=== PATIENT | female | born 1960 | race Caucasian/White ===

== ENCOUNTER 2018-11-13 08:36 | Emergency (ER) | payer OTHER ==
[2018-11-13] MEDS ORDERED: METHYLPREDNISOLONE 125 MG INJ ONE ×2 (09:07→09:08)
--- NOTE | 2018-11-13 10:03 | RAD REPORT ---
EXAM DESCRIPTION: CT - Stone Protocol - 11/13/2018 9:31 am CLINICAL HISTORY: Abdominal pain. COMPARISON: None. TECHNIQUE: Computed axial tomography of the abdomen pelvis was obtained without oral or IV contrast. Lack of IV and oral contrast limits evaluation of solid organs, bowel, and vessels. Coronal reformat sabrina images were obtained and reviewed. All CT scans are performed using dose optimization technique as appropriate and may include automated exposure control or mA/KV adjustment according to patient size. FINDINGS: 1 millimeter calculus left kidney. No hydronephrosis. No right renal calculus. An ureteral calculus is not noted. A bladder calculus is not present. The liver, spleen, pancreas and adrenals appear grossly normal There is no evidence of diverticulitis. The appendix appears normal Tiny umbilical hernia. Small bilateral inguinal hernias contain fat IMPRESSION: 1 millimeter nonobstructing left renal calculus
--- NOTE | 2018-11-13 10:16 | EDPHYS ---
Physician Documentation [facility] Name: Sangeeta Phelps Age: 58 yrs Sex: Female : 1960 Arrival Date: 11/13/2018 Time: 08:39 Bed 8 Private MD: ED Physician Andreas Reyes HPI: 11/13 09:04 This 58 yrs old Female presents to ER via Unassigned with complaints of Back rn Pain. 09:04 This 58 yrs old Female presents to ER via Unassigned with complaints of Back rn Pain. 09:04 The symptoms are located in the low back. Onset: The symptoms/episode began/occurred rn yesterday. The pain radiates to the abdomen. Associated signs and symptoms: The patient has no apparent associated signs or symptoms, Pertinent negatives: abdominal pain, chest pain, constipation, dysuria, fever, headache, hematuria, incontinence, nausea, numbness, tingling, urinary retention, vomiting, weakness. Modifying factors: The patient symptoms are alleviated by nothing, the patient symptoms are aggravated by any movement. Severity of symptoms: At their worst the symptoms were moderate, in the emergency department the symptoms are unchanged. The patient has not experienced similar symptoms in the past. The patient has not recently seen a physician. Historical: - Allergies: 09:00 No Known Allergies; sg - PMHx: 09:00 Anxiety; sg - PSHx: 09:19 Hysterectomy; iw - Immunization history:: Adult Immunizations not up to date. - Family history:: not pertinent. - Social history:: Smoking status: Patient/guardian denies using tobacco, Patient uses vape pen. - Ebola Screening: : Patient negative for fever greater than or equal to 101.5 degrees Fahrenheit, and additional compatible Ebola Virus Disease symptoms Patient denies exposure to infectious person Patient denies travel to an Ebola-affected area in the 21 days before illness onset No symptoms or risks identified at this time. - Hospitalizations: : No recent hospitalization is reported. ROS: 09:04 Constitutional: Negative for fever, chills, and weight loss, Eyes: Negative for injury, rn pain, redness, and discharge, Neck: Negative for injury, pain, and swelling, Cardiovascular: Negative for chest pain, palpitations, and edema, Respiratory: Negative for shortness of breath, cough, wheezing, and pleuritic chest pain, Abdomen/GI: Negative for abdominal pain, nausea, vomiting, diarrhea, and constipation, Back: Negative for injury MS/Extremity: Negative for injury and deformity, Skin: Negative for injury, rash, and discoloration, Neuro: Negative for headache, weakness, numbness, tingling, and seizure. Exam: 09:04 Constitutional: This is a well developed, well nourished patient who is awake, alert, rn appears uncomfortable Head/Face: Normocephalic, atraumatic. Eyes: Pupils equal round and reactive to light, extra-ocular motions intact. Lids and lashes normal. Conjunctiva and sclera are non-icteric and not injected. Cornea within normal limits. Periorbital areas with no swelling, redness, or edema. Neck: Trachea midline, no thyromegaly or masses palpated, and no cervical lymphadenopathy. Supple, full range of motion without nuchal rigidity, or vertebral point tenderness. No Meningismus. Cardiovascular: Regular rate and rhythm. No pulse deficits. Respiratory: No increased work of breathing, no retractions or nasal flaring. Abdomen/GI: soft, non-tender Back: No spinal tenderness. + painful ROM with perilumbar tenderness of muscles. MS/ Extremity: Pulses equal, no cyanosis. Neurovascular intact. Full, normal range of motion. Equal circumference. Neuro: Awake and alert, GCS 15, oriented to person, place, time, and situation. Cranial nerves II-XII grossly intact. Motor strength 5/5 in all extremities. Sensory grossly intact. Cerebellar exam normal. Normal gait. Neg straight leg raise, Patellar DTRs normal. Vital Signs: 09:08 BP 189 / 95; Pulse 71; Resp 16; Temp 98.2; Pulse Ox 97% on R/A; Weight 77.11 kg; Height iw 5 ft. 00 in. (152.40 cm); Pain 10/10; 09:59 BP 168 / 87; Pulse 74; Resp 16; Pulse Ox 96% ; Pain 3/10; ss 09:08 Body Mass Index 33.20 (77.11 kg, 152.40 cm) iw MDM: 08:57 Patient medically screened. rn 10:14 Differential diagnosis: arthritis, chronic back pain, Ureterolithiasis radiculopathy, rn muscle spasm. Data reviewed: vital signs, nurses notes, lab test result(s), urinalysis, radiologic studies, CT scan, and as a result, I will discharge patient. Counseling: I had a detailed discussion with the patient and/or guardian regarding: the historical points, exam findings, and any diagnostic results supporting the discharge/admit diagnosis, lab results, radiology results, the need for outpatient follow up, to return to the emergency department if symptoms worsen or persist or if there are any questions or concerns that arise at home. Response to treatment: the patient's symptoms have mildly improved after treatment, and as a result, I will discharge patient. Special discussion: I discussed with the patient/guardian in detail that at this point there is no indication for admission to the hospital. It is understood, however, that if the symptoms persist or worsen the patient needs to return immediately for re-evaluation. 11/13 09:24 Order name: Urine Dipstick--Ancillary (enter results) bd 11/13 09:03 Order name: CT Stone Protocol; Complete Time: 10:14 rn 11/13 09:03 Order name: Urine Dipstick-Ancillary (obtain specimen); Complete Time: 09:24 rn Administered Medications: 09:15 Drug: SOLU-Medrol 125 mg Route: IM; Site: right gluteus; ss 10:00 Follow up: Response: No adverse reaction; Marked relief of symptoms; Pain is decreased ss 09:24 Not Given (Patient admits she does not have a ride home upon discharge): [place] 10 ss mg-325 mg 1 tabs PO once; RASS on ADMIN: Combtv4, Very Agttd3, Agttd2, Rstlss1, AlertClm0, Drwsy-1, Lt Sdtn-2, Mod Sdtn-3, Dp Sdtn-4, UnArsble-5 10:24 Not Given (Duplicate Order): TORadol - Ketorolac 15 mg IVP once sg 10:29 Drug: TORadol - Ketorolac 15 mg Route: IM; Site: right deltoid; sg 10:37 Follow up: Response: No adverse reaction; Medication administered at discharge. ss Disposition: 11/13/18 10:15 Discharged to Home. Impression: Low back pain, Muscle spasm of back. - Condition is Stable. - Discharge Instructions: Back Pain, Adult, Kidney Stones, Muscle Cramps and Spasms, Back Exercises, Qrde-[id number]-Biag. - Prescriptions for Ultram 50 mg Oral Tablet - take 1 tablet by ORAL route every 6 hours As needed; 15 tablet. Cyclobenzaprine 10 mg Oral Tablet - take 1 tablet by ORAL route every 8 hours As needed; 20 tablet. Medrol (Joey) 4 mg Oral Tablets, Dose Pack - take 1 tablet by ORAL route as directed - follow package instructions; 1 packet. - Medication Reconciliation Form, Thank You Letter, Antibiotic Education, Prescription Opioid Use, Work release form form. - Follow up: Private Physician; When: As needed; Reason: Recheck today's complaints, Re-evaluation by your physician. - Problem is new. - Symptoms have improved. Signatures: Dispatcher [employer] EDMS Oliver Cordova RN RN sg Williams, Irene, RN RN iw Nieto, Roman, MD MD rn Smirch, Shelby, RN RN ss Corrections: (The following items were deleted from the chart) 09:19 09:00 PSHx: None; [facility] 10:37 10:15 11/13/2018 10:15 Discharged to Home. Impression: Low back pain; Muscle spasm of ss back. Condition is Stable. Forms are Medication Reconciliation Form, Thank You Letter, Antibiotic Education, Prescription Opioid Use. Follow up: Private Physician; When: As needed; Reason: Recheck today's complaints, Re-evaluation by your physician. Problem is new. Symptoms have improved. rn
--- NOTE | 2018-11-13 10:16 | ER ---
Nurse's Notes [facility] Name: Sangeeta Phelps Age: 58 yrs Sex: Female : 1960 Arrival Date: 11/13/2018 Time: 08:39 Bed 8 Private MD: Diagnosis: Low back pain;Muscle spasm of back Presentation: 11/13 09:07 Presenting complaint: Patient states: low back pain since morning, described as iw cramping pain, radiates to colin groin area, worse on left side, denies injury but was helping her move on Sunday. Transition of care: patient was not received from another setting of care. Onset of symptoms was November 12, 2018. Risk Assessment: Do you want to hurt yourself or someone else? Patient reports no desire to harm self or others. Initial Sepsis Screen: Does the patient meet any 2 criteria? No. Patient's initial sepsis screen is negative. Does the patient have a suspected source of infection? No. Patient's initial sepsis screen is negative. Care prior to arrival: None. 09:07 Method Of Arrival: Wheelchair iw 09:07 Acuity: MICHAEL 4 iw Historical: - Allergies: 09:00 No Known Allergies; sg - PMHx: 09:00 Anxiety; sg - PSHx: 09:19 Hysterectomy; iw - Immunization history:: Adult Immunizations not up to date. - Family history:: not pertinent. - Social history:: Smoking status: Patient/guardian denies using tobacco, Patient uses vape pen. - Ebola Screening: : Patient negative for fever greater than or equal to 101.5 degrees Fahrenheit, and additional compatible Ebola Virus Disease symptoms Patient denies exposure to infectious person Patient denies travel to an Ebola-affected area in the 21 days before illness onset No symptoms or risks identified at this time. - Hospitalizations: : No recent hospitalization is reported. Screenin:25 Abuse screen: Denies threats or abuse. Denies injuries from another. Nutritional ss screening: No deficits noted. Tuberculosis screening: Never had TB. Fall Risk None identified. Assessment: 09:15 General: Appears uncomfortable, Behavior is calm, cooperative. Pain: Complains of pain ss in lumbar area Pain radiates to bilateral groin area,"worse on left" Pain currently is 10 out of 10 on a pain scale. Pain began. Pain: Quality of pain is described as crampy. Pain: Pain began 1 day ago. Is continuous. Neuro: Level of Consciousness is awake, alert, obeys commands, Oriented to person, place, time, situation. Cardiovascular: Capillary refill < 3 seconds is brisk in bilateral fingers. Respiratory: Airway is patent Respiratory effort is even, unlabored, Respiratory pattern is regular, symmetrical. GI: Patient currently denies abdominal pain, diarrhea, nausea, vomiting. : No signs and/or symptoms were reported regarding the genitourinary system. EENT: Oral mucosa is moist. Derm: Skin is intact, is healthy with good turgor, Skin is dry, Skin is pink, warm \\T\\ dry. normal. Musculoskeletal: Circulation, motion, and sensation intact. Range of motion: intact in all extremities, Swelling absent. 09:25 Reassessment: assisted patient to restroom to provide urine specimen VIA wheelchair. ss NAD. Patient reports she does not have a ride home and does not want to leave her truck here therefore she will wait to take any narcotics. 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 09:33 Reassessment: PAtient back from CT. ss 09:59 Reassessment: Patient appears in no apparent distress at this time. Patient and/or ss family updated on plan of care and expected duration. Pain level reassessed. Patient states feeling better. Patient states symptoms have improved. 10:36 Reassessment: Patient appears in no apparent distress at this time. No changes from previously documented assessment. Vital Signs: 09:08 BP 189 / 95; Pulse 71; Resp 16; Temp 98.2; Pulse Ox 97% on R/A; Weight 77.11 kg; Height iw 5 ft. 00 in. (152.40 cm); Pain 10/10; 09:59 BP 168 / 87; Pulse 74; Resp 16; Pulse Ox 96% ; Pain 3/10; ss 09:08 Body Mass Index 33.20 (77.11 kg, 152.40 cm) iw ED Course: 08:39 Patient arrived in ED. rg4 08:57 Andreas Reyes MD is Attending Physician. rn 08:59 Arm band placed on. sg 09:08 Triage completed. iw 09:18 Diamond Reyes, RN is Primary Nurse. iw 09:20 Patient has correct armband on for positive identification. Bed in low position. Call ss light in reach. 09:31 CT Stone Protocol In Process Unspecified. EDMS 10:36 No provider procedures requiring assistance completed. Patient did not have IV access ss during this emergency room visit. Administered Medications: 09:15 Drug: SOLU-Medrol 125 mg Route: IM; Site: right gluteus; ss 10:00 Follow up: Response: No adverse reaction; Marked relief of symptoms; Pain is decreased ss 09:24 Not Given (Patient admits she does not have a ride home upon discharge): [place] 10 ss mg-325 mg 1 tabs PO once; RASS on ADMIN: Combtv4, Very Agttd3, Agttd2, Rstlss1, AlertClm0, Drwsy-1, Lt Sdtn-2, Mod Sdtn-3, Dp Sdtn-4, UnArsble-5 10:24 Not Given (Duplicate Order): TORadol - Ketorolac 15 mg IVP once sg 10:29 Drug: TORadol - Ketorolac 15 mg Route: IM; Site: right deltoid; sg 10:37 Follow up: Response: No adverse reaction; Medication administered at discharge. ss Outcome: 10:15 Discharge ordered by . rn 10:36 Discharged to home ambulatory. ss 10:36 Condition: improved 10:36 Discharge instructions given to patient, Instructed on discharge instructions, follow up and referral plans. medication usage, Demonstrated understanding of instructions, follow-up care, medications, Prescriptions given X 3. 10:37 Patient left the ED. ss Signatures: Dispatcher [employer] EDMS Oliver Cordova RN RN sg Williams, Irene, RN RN iw Andreas Reyes MD MD rn Smirch, Shelby, RN RN ss Garcia, Rubi rg4 Corrections: (The following items were deleted from the chart) 09:19 09:00 PSHx: None; sg dom
[2018-11-13] MEDS ORDERED: KETOROLAC 30 MG/ML INJ ONE (10:26)
[2018-11-13 10:33] LABS: Urine Blood TRACE (NEG); Urine Glucose NEGATIVE (NEG); Urine Protein NEGATIVE (NEG)
[2018-11-13 10:54] VITALS: BP 168/87; O2SAT 96
[2018-11-13 10:56] VITALS: TEMP 98.2
== END 2018-11-13 10:37 | disposition home or self-care (01) ==
LOC: ER 08:36
DX: M62.830 Muscle spasm of back (principal); F17.290 Nicotine dependence, other tobacco product, uncomplicated
CPT/HCPCS: 81003; 76377; 74176; 96372; 99283; J2930

== ENCOUNTER 2021-11-03 08:02 | Emergency (ER) | payer OTHER ==
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
[2021-11-03] MEDS ORDERED: DIAZEPAM 5 MG TABLET ONE (09:08)
[2021-11-03] MEDS ORDERED: KETOROLAC 30 MG/ML INJ ONE (09:09)
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
[2021-11-05 03:27] VITALS: TEMP 98.5; O2SAT 100
[2021-11-05 03:31] VITALS: BP 167/88
== END 2021-11-03 10:14 | disposition home or self-care (01) ==
LOC: ER 08:02
DX: S29.012A Strain of muscle and tendon of back wall of thorax, initial encounter (principal); M25.78 Osteophyte, vertebrae; V49.40XA Driver injured in collision with unspecified motor vehicles in traffic accident, initial encounter; I10 Essential (primary) hypertension; Z88.5 Allergy status to narcotic agent
CPT/HCPCS: 70450; 71250; 72125; 96372; 99284

== ENCOUNTER 2021-11-28 09:24 | Emergency (ER) | payer BC, OTHER ==
--- OUTSIDE RECORDS SUMMARY | 2021-11-28 09:27 | XMS REPORT | Continuity of Care Document ---
:1960 Author Organization [facility] t Address [address] [place] [address] Care Team Providers Name Role Phone ANN [...] 50 MG HCl - 50 MG 1-22 MOSQUE TABLET Physici Oral Tablet Oral Tablet 00:00: [...] Procedure Date / Time Performed Performing Clinician [facility] Chest w contrast [id number] 2019-09-05 00:00:[address] Chest wo contrast [id number] 2019-03-05 00:00:[address] Abdomen/Pelvis wo 2019-03-05 00:00:00 [facility] contrast [id number] Encounters Start End Encounter Admission Attending Care Care Encounter Source Date/Time Date/Time Type Type Clinicians Facility Department ID 2019-04-11 2019-04-11 Appointmen [facility] [id number] [place] 09:30:00 09:30:00 t; [facility] 2019-03-05 2019-03-05 Appointmen [facility] [id number] [place] 08:00:00 08:00:00 t; ANN MARIE HINTON, [facility] David Grande M.D. [facility] 2017-08-03 2017-08-[address] [facility] [id number] [facility] 04:31:00 06:40:00 [facility] Results Test Test Test Results Result Source Description Time Comments Comments CT 2019-02- Radiation Dose CTDIVOL = [facility] Chest/Abdomen/P 28 0 (mGy): DLP = 991.41 rachel wo 07:55:00 (mGy-cm)PROCEDURE contrast [id number] INFORMATION:Exam: CT Chest Without ContrastExam date and [...] corticaltrabeculation compatible with hemangiomata. This corresponds with [id number] lesions seen on MRI. There is a [...] is nonspecificArgenis Rhodes MD On 03/11/2019 16:05:56; [id number]--Odgb by: Argenis Rhodes MDDictated Date/time: 03/11/19 16:06Electronically Signed by: Argenis Rhodes MD 03/11/2015:06FINAL REPORT
[2021-11-28 10:15] LABS: Absolute Lymphocytes (CBC) 1.1 K/uL (0.7-4.9); Hematocrit 40.5 % (36.0-45.0); Lymphocytes % 14.6 % (15.3-44.8); MCV 97.5 fL (80-100); MPV 6.5 fL (7.6-11.3); RBC Red Blood Cell Count 4.16 M/uL (3.86-4.86)
[2021-11-28 10:34] LABS: Albumin 3.2 g/dL (3.4-5.0); Bilirubin Total 0.2 mg/dL (0.2-1.0); Potassium 4.6 mmol/L (3.5-5.1); Protein, Total 7.1 g/dL (6.4-8.2); Troponin High Sensitivity 6.3 pg/mL (<58.9)
--- NOTE | 2021-11-28 10:52 | RAD REPORT ---
EXAM DESCRIPTION: Hi Single View11/28/2021 10:43 am CLINICAL HISTORY: Chest pain COMPARISON: 2017 FINDINGS: The lungs appear clear of acute infiltrate. The heart is normal size IMPRESSION: No acute abnormalities displayed
--- NOTE | 2021-11-28 13:55 | ER ---
Nurse's Notes [facility] Name: Sangeeta Asif Age: 61 yrs Sex: Female : 1960 Arrival Date: 11/28/2021 Time: 09:35 Bed 4 Private MD: Diagnosis: Chest pain, unspecified Presentation: 11/28 09:43 Chief complaint: Patient states: pt woke up with midsternal chest pain radiating to the iw left, and back , pain felt sharp, 5/10, gave fentanyl 50 mcg and ASA 324 and pain is now 3/10. Coronavirus screen: At this time, the client does not indicate any symptoms associated with coronavirus-19. Ebola Screen: Patient negative for fever greater than or equal to 101.5 degrees Fahrenheit, and additional compatible Ebola Virus Disease symptoms Patient denies exposure to infectious person. Patient denies travel to an Ebola-affected area in the 21 days before illness onset. No symptoms or risks identified at this time. Initial Sepsis Screen: Does the patient meet any 2 criteria? No. Patient's initial sepsis screen is negative. Does the patient have a suspected source of infection? No. Patient's initial sepsis screen is negative. Risk Assessment: Do you want to hurt yourself or someone else? Patient reports no desire to harm self or others. Onset of symptoms was November 28, 2021. 09:43 Method Of Arrival: EMS: [facility] iw 09:43 Acuity: MICHAEL 3 iw Historical: - Allergies: 09:46 Codeine; iw - Home Meds: 09:53 metformin 500 mg Oral tr24 1 tab once daily [Active]; simvastatin 10 mg Oral tab 1 tab iw once daily [Active]; montelukast 10 mg oral tab 1 tab once daily [Active]; lisinopril 20 mg Oral tab 1 tab once daily [Active]; - PMHx: 09:46 Anxiety; Hypercholesterolemia; Hypertensive disorder; iw - Immunization history:: Adult Immunizations unknown. - Social history:: Smoking status: unknown. Screenin:12 Abuse screen: Denies threats or abuse. Nutritional screening: No deficits noted. jd3 Tuberculosis screening: No symptoms or risk factors identified. Fall Risk IV access (20 points). Ambulatory Aid- None/Bed Rest/Nurse Assist (0 pts). Gait- Normal/Bed Rest/Wheelchair (0 pts) Mental Status- Oriented to own ability (0 pts). Total Horowitz Fall Scale indicates No Risk (0-24 pts). Assessment: 10:10 General: Appears in no apparent distress. comfortable, Behavior is calm, cooperative, jd3 appropriate for age. Pain: Complains of pain in chest Pain currently is 2 out of 10 on a pain scale. at worst was 10 out of 10 on a pain scale. Quality of pain is described as pressure, squeezing. Neuro: Solis Agitation-Sedation Scale (RASS): 0 - Alert and Calm Level of Consciousness is awake, alert, obeys commands, Oriented to person, place, time, situation. Cardiovascular: Heart tones S1 S2 present Capillary refill < 3 seconds Patient's skin is warm and dry. Rhythm is regular. Respiratory: Airway is patent Respiratory effort is even, unlabored, Respiratory pattern is regular, symmetrical, Breath sounds are clear bilaterally. Denies cough, shortness of breath. GI: No signs and/or symptoms were reported involving the gastrointestinal system. : No signs and/or symptoms were reported regarding the genitourinary system. EENT: No signs and/or symptoms were reported regarding the EENT system. Derm: Skin is intact, Skin is dry, Skin is normal, Skin temperature is warm. Musculoskeletal: Circulation, motion, and sensation intact. Range of motion: intact in all extremities. 10:38 Reassessment: Patient appears in no apparent distress at this time. Patient and/or jd3 family updated on plan of care and expected duration. Pain level reassessed. Patient is alert, oriented x 3, equal unlabored respirations, skin warm/dry/pink. awaiting results. 11:52 Reassessment: Patient appears in no apparent distress at this time. Patient and/or jd3 family updated on plan of care and expected duration. Pain level reassessed. Patient is alert, oriented x 3, equal unlabored respirations, skin warm/dry/pink. 13:15 Reassessment: Patient appears in no apparent distress at this time. Patient and/or jd3 family updated on plan of care and expected duration. Pain level reassessed. Patient is alert, oriented x 3, equal unlabored respirations, skin warm/dry/pink. repeat trop sent to lab Patient states feeling better. Vital Signs: 09:46 BP 186 / 97; Pulse 72; Resp 16; Temp 98.1; Pulse Ox 98% on R/A; iw 10:38 BP 189 / 96; Pulse 73; Resp 16; Pulse Ox 99% on R/A; Pain 2/10; jd3 11:52 BP 173 / 88; Pulse 74; Resp 17 S; Pulse Ox 99% on R/A; jd3 13:15 BP 165 / 75; Pulse 92; Resp 18; Pulse Ox 99% on R/A; jd3 ED Course: 09:35 Patient arrived in ED. ll1 09:38 Carolyn Carias MD is Attending Physician. sd2 09:45 Triage completed. iw 09:45 Arm band placed on. iw 09:57 Kelvin Mayberry RN is Primary Nurse. jd3 10:09 Maintain EMS IV. Dressing intact. Good blood return noted. Site clean \T\ dry. Gauge \T\ dixon 3 site: 20 G to the left AC. 10:12 Patient has correct armband on for positive identification. Placed in gown. Bed in low jd3 position. Call light in reach. Side rails up X 1. Adult w/ patient. Client placed on continuous cardiac and pulse oximetry monitoring. NIBP monitoring applied. quality assurance monitor on. Pulse ox on. NIBP on. 10:47 XRAY Chest (1 view) In Process Unspecified. EDMS 14:07 No provider procedures requiring assistance completed. IV discontinued, intact, jd3 bleeding controlled, No redness/swelling at site. Pressure dressing applied. Administered Medications: No medications were administered Medication: 10:12 VIS not applicable for this client. jd3 Outcome: 13:54 Discharge ordered by . sd2 14:07 Discharged to home ambulatory, with family. jd3 14:07 Condition: stable 14:07 Discharge instructions given to patient, family, Instructed on discharge instructions, follow up and referral plans. Demonstrated understanding of instructions, follow-up care. 14:07 Patient left the ED. jd3 Signatures: Dispatcher [employer] EDMS Diamond Reyes RN RN iw Kelvin Mayberry RN RN jd3 Lewis, Lynsay, RN RN ll1 Carolyn Carias MD MD sd2 Corrections: (The following items were deleted from the chart) 13:16 13:15 Reassessment: Patient appears in no apparent distress at this time. Patient jd3 and/or family updated on plan of care and expected duration. Pain level reassessed. Patient is alert, oriented x 3, equal unlabored respirations, skin warm/dry/pink. repeat trop sent to lab jd3
--- NOTE | 2021-11-28 13:55 | EDPHYS ---
Physician Documentation [facility] Name: Sangeeta Asif Age: 61 yrs Sex: Female : 1960 Arrival Date: 11/28/2021 Time: 09:35 Bed 4 Private MD: ED Physician Carolyn Carias HPI: 11/28 09:40 This 61 yrs old Female presents to ER via Unassigned with complaints of chest pain. sd2 09:40 61-year-old female with a history of hypertension and diabetes presents via EMS with sd2 chief complaint of chest pain. She reports the chest pain started a little after waking up this morning and gradually worsened throughout the day. She does endorse some mild shortness of breath with it. She denies any associated nausea, vomiting or diaphoresis. She does not have any prior cardiac history. She reports only having chest pain in the past with panic attacks but did not feel anxious this morning that she can remember. Her last stress test was performed approximately 10 years ago. She was given 50 mcg of fentanyl with EMS with improvement of her chest pain to a 3 out of 10. 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 The pain did radiate to her left arm and her back. She also reports elevated BP readings recently that have been worsening. Her BP medication she has been doubling and taking twice daily per her PCP for the past few days and is scheduled to see her again on . Pt given ASA 324 mg with EMS [employer].. Historical: - Allergies: 09:46 Codeine; iw - Home Meds: 09:53 metformin 500 mg Oral tr24 1 tab once daily [Active]; simvastatin 10 mg Oral tab 1 tab iw once daily [Active]; montelukast 10 mg oral tab 1 tab once daily [Active]; lisinopril 20 mg Oral tab 1 tab once daily [Active]; - PMHx: 09:46 Anxiety; Hypercholesterolemia; Hypertensive disorder; iw - Immunization history:: Adult Immunizations unknown. - Social history:: Smoking status: unknown. ROS: 09:40 Constitutional: Negative for fever, chills, and weight loss, Eyes: Negative for injury, sd2 pain, redness, and discharge. 09:40 Abdomen/GI: Negative for abdominal pain, nausea, vomiting, diarrhea. MS/Extremity: Negative for injury and deformity, Skin: Negative for injury, rash, and discoloration, Neuro: Negative for headache, numbness and tingling. 09:40 Cardiovascular: Positive for chest pain, Negative for orthopnea, palpitations. 09:40 Respiratory: Positive for shortness of breath, Negative for cough, dyspnea on exertion, wheezing. Exam: 09:40 Constitutional: This is a well developed, well nourished patient who is awake, alert, sd2 and in no acute distress. Head/Face: Normocephalic, atraumatic. Eyes: EOMI, normal conjunctiva bilaterally Chest/axilla: Normal chest wall appearance and motion. Mild reproducible tenderness to L anterior chest wall without crepitus. Cardiovascular: Regular rate and rhythm with a normal S1 and S2. No gallops, murmurs, or rubs. 2+ distal pulses. Respiratory: Lungs have equal breath sounds bilaterally, clear to auscultation and percussion. No rales, rhonchi or wheezes noted. No increased work of breathing, no retractions or nasal flaring. Abdomen/GI: Soft, non-tender, with normal bowel sounds. No guarding or rebound. No evidence of tenderness throughout. Skin: Warm, dry with normal turgor. Normal color with no rashes, no lesions, and no evidence of cellulitis. MS/ Extremity: Pulses equal, no cyanosis. Neurovascular intact. Full, normal range of motion. Ambulatory without difficulty. Psych: Awake, alert, with orientation to person, place and time. Behavior, mood, and affect are within normal limits. 09:40 ECG was reviewed by the Attending Physician. NSR, rate 68, no STEMI criteria or ST-T sd2 wave changes Vital Signs: 09:46 BP 186 / 97; Pulse 72; Resp 16; Temp 98.1; Pulse Ox 98% on R/A; iw 10:38 BP 189 / 96; Pulse 73; Resp 16; Pulse Ox 99% on R/A; Pain 2/10; jd3 11:52 BP 173 / 88; Pulse 74; Resp 17 S; Pulse Ox 99% on R/A; jd3 13:15 BP 165 / 75; Pulse 92; Resp 18; Pulse Ox 99% on R/A; jd3 MDM: 09:40 Differential Diagnosis Differential diagnosis includes but is not limited to: ACS, sd2 DVT/PE, pneumothorax, dissection, musculoskeletal, anxiety, anemia, electrolyte abnormality, pneumonia, CHF, COPD among others. Data reviewed: vital signs, nurses notes, EMS record, EKG. 09:44 Patient medically screened. sd2 13:53 Data reviewed: lab test result(s), radiologic studies. Counseling: I had a detailed sd2 discussion with the patient and/or guardian regarding: the historical points, exam findings, and any diagnostic results supporting the discharge/admit diagnosis, lab results, radiology results, the need for outpatient follow up, to return to the emergency department if symptoms worsen or persist or if there are any questions or concerns that arise at home. Medical screen evaluation completed. EMTALA emergency medical condition absent. ED course: Labs and imaging reviewed. Labs grossly WNCL. Delta trop negative. EKG with no ischemic changes. CXR with no acute process. Pt with resolution and no recurrence of chest pain in ER. She is tolerating PO and wanting to be discharged. She is comfortable with plan for d/c and outpatient follow up with PCP. Verbalizes understanding of strict return precautions. . 11/28 09:44 Order name: CBC with Diff sd2 11/28 09:44 Order name: CMP sd2 11/28 09:44 Order name: Magnesium sd2 11/28 09:44 Order name: Troponin High Sensitivity sd2 11/28 09:44 Order name: BNP sd2 11/28 10:20 Order name: CBC with Automated Diff EDMS 11/28 09:44 Order name: EKG - Nurse/Tech; Complete Time: 09:58 sd2 11/28 09:44 Order name: XRAY Chest (1 view); Complete Time: 10:55 sd2 11/28 10:34 Order name: Comprehensive Metabolic Panel EDMS 11/28 10:34 Order name: Troponin High Sensitivity EDMS 11/28 10:34 Order name: NT PRO-BNP EDMS 11/28 10:34 Order name: Magnesium EDMS 11/28 12:49 Order name: Troponin High Sensitivity: \[id number]; Complete Time: 13:48 sd2 Administered Medications: No medications were administered Disposition Summary: 11/28/21 13:54 Discharge Ordered Location: Home sd2 Problem: new sd2 Symptoms: are resolved sd2 Condition: Stable sd2 Diagnosis - Chest pain, unspecified sd2 Followup: sd2 - With: Private Physician - When: 2 - 3 days - Reason: Recheck today's complaints, Continuance of care, Re-evaluation by your physician Discharge Instructions: - Discharge Summary Sheet sd2 - Nonspecific Chest Pain, Adult sd2 Forms: - Medication Reconciliation Form sd2 - Thank You Letter sd2 - Antibiotic Education sd2 - Prescription Opioid Use sd2 Signatures: Dispatcher [employer] Diamond Gregg RN RN iw Davies, Jonathon, RN RN jd3 Dunlop, Stephanie, MD MD sd2 Corrections: (The following items were deleted from the chart) 09:44 09:40 61-year-old female with a history of hypertension and diabetes presents via EMS sd2 with chief complaint of chest pain. She reports the chest pain started a little after waking up this morning and gradually worsened throughout the day. She does endorse some mild shortness of breath with it. She denies any associated nausea, vomiting or diaphoresis. She does not have any prior cardiac history. She reports only having chest pain in the past with panic attacks but did not feel anxious this morning that she can remember. Her last stress test was performed approximately 10 years ago. She was given 50 mcg of fentanyl with EMS with improvement of her chest pain to a 3 out of 10. 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 The pain did radiate to her left arm and her back. She also reports elevated BP readings recently that have been worsening. Her BP medication she has been doubling and taking twice daily per her PCP for the past few days and is scheduled to see her again on . . sd2
[2021-11-28 14:20] VITALS: TEMP 98.1
[2021-11-28 14:21] VITALS: O2SAT 99
[2021-11-28 14:23] VITALS: BP 165/75
--- NOTE | 2021-11-29 14:06 | EKG ---
Test Date: 2021-11-28 Test Time: 09:43:47 Orthodontic Laboratory Technician: JOHNY MEASUREMENT RESULTS: Intervals: Rate: 68 MO: 166 QRSD: 74 QT: 390 QTc: 414 [place]: P: 60 MO: 166 QRS: 56 T: 66 INTERPRETIVE STATEMENTS: Normal sinus rhythm Normal ECG No previous ECG available for comparison Electronically Signed On 11-29-21 14:02:22 CDT by Maurizio Boyce
== END 2021-11-28 14:07 | disposition home or self-care (01) ==
LOC: ER 09:24
DX: R07.9 Chest pain, unspecified (principal); I10 Essential (primary) hypertension; E11.9 Type 2 diabetes mellitus without complications; F41.9 Anxiety disorder, unspecified; E78.00 Pure hypercholesterolemia, unspecified
CPT/HCPCS: 36415; 71045; 80053; 83735; 83880; 84484; 85025; 93005; 99284

== ENCOUNTER 2023-01-14 13:39 | Emergency (ER) | payer BC ==
--- OUTSIDE RECORDS SUMMARY | 2023-01-14 13:59 | XMS REPORT | Continuity of Care Document ---
:1960 Author Organization [facility] t Address [address] [place] [address] Care Team Providers Name Role Phone SHERLY ROMERO Attending Clinician Unavailable LAB90 Attending Clinician Unavailable ANN MARIE HINTON M.D. Attending Clinician Unavailable DR ARMEN MONTEJO Attending Clinician Unavailable DR ARMEN MONTEJO Admitting Clinician Unavailable Payers Payer Name Policy Type Policy Number Effective Date Expiration Date S rubina [facility] 2 [id number] 2022 00:00:00 Problems Condition Condition Condition Status Onset Resolution Last Treating Co mments Source Name Details Category Date Date Treatment Clinician Date Well adult Well adult Disease Active 2022-02 K kerrie exam exam 1-13 Seybold 00:00: - 00 Externa l Primary Primary Disease Active Christelle hypertensi hypertensi 2-24 Se ybold on on 00:00: - 00 Externa l Mixed Mixed Disease Active Christelle hyperlipid hyperlipid 2-24 Se ybold emia emia 00:00: - 00 Externa l Prediabete Prediabete Disease Active K elsey s s 2-24 Seybold 00:00: - 00 Externa l Class 1 Class 1 Disease Active Christelle obesity obesity 2-24 Seybold due to due to 00:00: - excess excess 00 Externa calories calories l with with serious serious comorbidit comorbidit y and body y and body mass index mass index (BMI) of (BMI) of 34.0 to 34.0 to 34.9 in 34.9 in adult adult Class 1 Class 1 Disease Active Christelle obesity obesity 04-07 Seybold due to due to 00:00: - excess excess 00 Externa calories calories l with with serious serious comorbidit comorbidit y and body y and body mass index mass index (BMI) of (BMI) of 34.0 to 34.0 to 34.9 in 34.9 in adult adult Other Other Problem Active [facility] fracture fracture ans of second of second lumbar lumbar vertebra, vertebra, initial initial encounter encounter Hemangioma Hemangioma Problem Active [facility] of other of other Physic i sites sites ans Allergies, Adverse Reactions, Alerts Allergy Allergy Status Severity Reaction(s) Onset Inactive Treating Comm ents Source Name Type Date Date Clinician Moses Strong Active Itching Christelle ty to 04-07 Seybold adverse 00:00: - reaction 00 Externa s l Social History Social Habit Start Date Stop Date Quantity Comments Source Gender identity Christelle corbett - External Sexual orientation Christelle Davis - External History SDOH Christelle desai Alcohol Frequency - Exter nal History SDOH Christelle Gutiérrez ld Alcohol Std Drinks - Exte rnal History MAYELINOH Christelle desai Alcohol Binge - External Alcohol intake 2022-12-25 2022-12-25 Current drinker Gabby Davis 00:00:00 00:00:00 of alcohol - External (finding) History of Social 2022-10-30 2022-10-30 Christelle Davis function 00:00:00 00:00:00 - External Alcohol Comment 2022-04-07 2022-04-07 moderately Christelle corbett 00:00:00 00:00:00 - External Education - What is 2022-04-07 2022-04-07 GED or equivalent Christelle Davis the highest level 00:00:00 00:00:00 - Exter nal of school you have completed or the highest degree you have received? Tobacco use and 2022-04-07 2022-04-07 Smokeless tobacco Ke lubna Rosadoold exposure 00:00:00 00:00:00 non-user - External Sex Ass[birth year] At [birth year] Christelle corbett 00:00:00 00:00:00 - External Smoking Status Start Date Stop Date Source Never smoked tobacco Christelle Rosado old - External Medications Ordered Filled Start Stop Current Ordering Indication Dosage Frequency Signature Comments Components Source Medication Medication Date Date Medication? Clinician (SIG) Name Name Shabbir 2022-02 Yes [id number] Apply 1 Christelle (BACTROBAN) 1-13 applicatio Se corbett 2 % apply 00:00: n. - externally 00 topically Exte rna Ointment 2 times l daily. Semaglutide 2022-02 Yes [id number] .25mg Inject Christelle -WEGOVY-Bogdan 0-06 0.25 mg Seybo ld ght 00:00: into the - Management 00 skin once Exte rna 0.25 a week. l MG/0.5ML Subcutaneou s Solution Auto-inject or Semaglutide 2022-02 Yes [id number] .25mg Inject Christelle -WEGOVY-Bogdan 0-06 0.25 mg Seybo ld ght 00:00: into the - Management 00 skin once Exte rna 0.25 a week. l MG/0.5ML Subcutaneou s Solution Auto-inject or Metformin Yes 500mg Take 1 Kelse y HCl ER 500 9-19 tablet Seybold MG oral 00:00: (500 mg - TABLET SR 00 total) by Exter na 24 HR mouth l daily (with breakfast) . Metformin Yes 500mg Take 1 Kelse y HCl ER 500 9-19 tablet Seybold MG oral 00:00: (500 mg - TABLET SR 00 total) by Exter na 24 HR mouth l daily (with breakfast) . Tizanidine 2022-0 202- No [id number] TAKE 1 Christelle HCl 2 MG 5-24 10-06 TABLET BY Seybo ld oral Tablet 00:00: 00:00 MOUTH - 00 :00 NIGHTLY Externa NEEDED FOR l MUSCLE SPASMS Simvastatin 2022-0 Yes 10mg Take 1 Kasandra ey 10 MG oral 5-18 tablet (10 Sey bold Tablet 00:00: mg total) - 00 by mouth Externa nightly l Simvastatin 2022-0 Yes 10mg Take 1 Kasandra ey 10 MG oral 5-18 tablet (10 Sey bold Tablet 00:00: mg total) - 00 by mouth Externa nightly l Meloxicam 2022-0 2022- No [id number] TAKE 1 Christelle 15 MG oral 5-04 10-06 TABLET BY Sey bold Tablet 00:00: 00:00 MOUTH - 00 :00 EVERY DAY Externa NEEDED l FOR PAIN HYDROcodone 2022-0 2022- No Heavener 5 Ke lsey -Acetaminop - 04-06 mg-325 mg Se ybold hen (Heavener) 11:06: 00:00 tablet - 5-325 MG 37 :00 Take 1 Externa oral Tablet tablet l every 6-8 hours by oral route. Lisinopril 2022-0 2022- No 20mg Take 1 Kasandra ey 20 MG oral 05-18-06 tablet (20 Se ybold Tablet 11:06: 00:00 mg total) - 27 :00 by mouth 2 Externa times l daily Amlodipine 2022-0 2022- No 10mg Take 1 Kasandra ey Besylate 10 - 04-06 tablet (10 S eybold MG oral 11:06: 00:00 mg total) - Tablet 27 :00 by mouth Externa daily l Metformin 2022-0 2022- No 500mg Take 1 Kasandra ey HCl 500 MG - 04-06 tablet Seybol d oral Tablet 11:01: 00:00 (500 mg - 11 :00 total) by Externa mouth l daily Take 1 tablet daily in evening Simvastatin 2022-0 Yes 10mg Take 1 Kasandra ey 10 MG oral 4-06 tablet (10 Sey bold Tablet 10:58: mg total) - 03 by mouth Externa every day l at bedtime Tizanidine 2022-0 Yes [id number] 2mg QD Take 1 Christelle HCl 2 MG 4-06 tablet (2 Seybol d oral Tablet 00:00: mg total) - 00 by mouth Externa nightly as l needed for muscle spasms Lisinopril 2022-0 Yes [id number] 40mg Take 1 K elsey 40 MG oral 4-06 tablet (40 Sey bold Tablet 00:00: mg total) - 00 by mouth Externa daily l Amlodipine 2022-0 Yes [id number] 10mg Take 1 K elsey Besylate 10 4-06 tablet (10 Se ybold MG oral 00:00: mg total) - Tablet 00 by mouth Externa daily l Lisinopril 3-0 Yes [id number] 40mg Take 1 K elsey 40 MG oral 4-06 tablet (40 Sey bold Tablet 00:00: mg total) - 00 by mouth Externa daily l Amlodipine 2022-0 Yes [id number] 10mg Take 1 K elsey Besylate 10 4-06 tablet (10 Se ybold MG oral 00:00: mg total) - Tablet 00 by mouth Externa daily l Metformin 2022-0 Yes [id number] 500mg Take 1 Christelle HCl 500 MG 4-06 tablet Seybold oral Tablet 00:00: (500 mg - 00 total) by Externa mouth l daily (with breakfast) Take 1 tablet daily in evening Lisinopril 2022-0 Yes [id number] 40mg Take 1 K elsey 40 MG oral 4-06 tablet (40 Sey bold Tablet 00:00: mg total) - 00 by mouth Externa daily l Amlodipine 2022-0 Yes [id number] 10mg Take 1 K elsey Besylate 10 4-06 tablet (10 Se ybold MG oral 00:00: mg total) - Tablet 00 by mouth Externa daily l Amlodipine 2022-0 Yes 10mg Take 10 mg K elsey Besylate 10 2-24 by mouth Seyb old MG oral 15:51: daily - Tablet 09 Externa l Simvastatin 2022-0 Yes 10mg Take 10 mg Christelle 10 MG oral 2-24 by mouth Seybo ld Tablet 15:46: every day - 42 at bedtime Externa l Lisinopril 3-0 Yes 20mg Take 20 mg K elsey 20 MG oral 2-24 by mouth 2 Sey bold Tablet 15:46: times - 41 daily Externa l Metformin 3-0 Yes 500mg Take 500 Kumar sey HCl 500 MG 2-24 mg by Seybold oral Tablet 15:46: mouth - 41 daily Take Externa 1 tablet l daily in evening Meloxicam 2022-0 Yes [id number] 15mg QD Take 1 K elsey 15 MG oral 2-24 tablet (15 Sey bold Tablet 00:00: mg total) - 00 by mouth Externa daily as l needed for pain Tizanidine 3-0 Yes [id number] 2mg QD Take 1 Christelle HCl 2 MG 2-24 tablet (2 Seybol d oral Tablet 00:00: mg total) - 00 by mouth Externa nightly as l needed for muscle spasms Meloxicam 2022-0 Yes [id number] 15mg QD Take 1 K elsey 15 MG oral 2-24 tablet (15 Sey bold Tablet 00:00: mg total) - 00 by mouth Externa daily as l needed for pain Tizanidine 0 2023- No [id number] 2mg QD Take 1 Christelle HCl 2 MG 2-24 04-06 tablet (2 Seybo ld oral Tablet 00:00: 00:00 mg total) - 00 :00 by mouth Externa nightly as l needed for muscle spasms traMADol traMADol Yes LAKE 1 Q6H TAKE 1 [facility] HCl - 50 MG HCl - 50 MG 1-22 ROMAN CATHOLIC TABLET [facility] Oral Tablet Oral Tablet 00:00: PA-C EVERY 6 ans 00 HOURS PRN Immunizations Ordered Immunization Filled Immunization Date Status Commen ts Source Name Name Tdap- (Boostrix, Unknown Completed Christelle kathleenbold - Adacel) External Tdap- (Boostrix, Unknown Completed Christelle S eybold - Adacel) External Vital Signs Vital Name Observation Time Observation Value Comments Source Systolic blood 2022-12-25 146 mm[Hg] Christelle Seybol d - pressure 19:10:00 External Diastolic blood 2022-12-25 71 mm[Hg] Christelle Seybo ld - pressure 19:10:00 External Heart rate 2022-12-25 87 /min Christelle Davis - :10:00 External Body temperature 2022-12-25 36.11 Lilly Christelle Rosado old - :10:00 External Respiratory rate 2022-12-25 15 /min Christelle Rosado old - 19:10:00 External Body height 2022-12-25 152.4 cm Christelle Davis - 19:10:00 External Body weight 2022-12-25 79.198 kg Christelle Davis - 19:10:00 External BMI 2022-12-25 34.10 kg/m2 Christelle Davis - :10:00 External Oxygen saturation 2022-12-25 99 /min Christelle Armendariz bold - in Arterial blood 19:10:00 External by Pulse oximetry Body height 2022-11-17 152.4 cm Christelle Seybold - 12:52:00 External Body weight 2022-11-17 79.379 kg Christelle Laybold - 12:52:00 External BMI 2022-11-17 34.18 kg/m2 Christelle Laybold - 12:52:00 External Systolic blood 2022-11-17 132 mm[Hg] Christelle Seybol d - pressure 12:52:00 External Diastolic blood 2022-11-17 72 mm[Hg] Christelle Seybo ld - pressure 12:52:00 External Heart rate 2022-11-17 77 /min Christelle Laybold - 12:52:00 External Body temperature 2022-11-17 36.22 Lilly Christelle Layb old - 12:52:00 External Respiratory rate 2022-11-17 14 /min Christelle Layb old - 12:52:00 External Systolic blood 2022-05-18 142 mm[Hg] Christelle Seybol d - pressure 15:55:00 External Diastolic blood 2022-05-18 79 mm[Hg] Christelle Seybo ld - pressure 15:55:00 External Heart rate 2022-05-18 79 /min Christelle Laybold - 15:55:00 External Body temperature 2022-05-18 36.44 Lilly Christelle Layb old - 15:55:00 External Respiratory rate 2022-05-18 15 /min Christelle Layb old - 15:55:00 External Body height 2022-05-18 152.4 cm Christelle Laybold - 15:55:00 External Body weight 2022-05-18 79.833 kg Christelle Laybold - 15:55:00 External BMI 2022-05-18 34.37 kg/m2 Christelle Laybold - 15:55:00 External Oxygen saturation 2022-05-18 96 /min Christellepieter Armendariz bold - in Arterial blood 15:55:00 External by Pulse oximetry Systolic blood 2022-04-07 136 mm[Hg] Christelle Seybol d - pressure 21:40:00 External Diastolic blood 2022-04-07 76 mm[Hg] Christelle Seybo ld - pressure 21:40:00 External Heart rate 2022-04-07 86 /min Christelle Seybold - 21:40:00 External Body temperature 2022-04-07 37.11 Lilly Christelle Rosado old - :40:00 External Respiratory rate 2022-04-07 20 /min Christelle Rosado old - :40:00 External Body height 2022-04-07 152.4 cm Christelle Davis - :40:00 External Body weight 2022-04-07 80.105 kg Christelle Davis - :40:00 External BMI 2022-04-07 34.49 kg/m2 Christelle Davis - :40:00 External Oxygen saturation 2022-04-07 97 /min Christelle Armendariz bold - in Arterial blood 21:40:00 External by Pulse oximetry Systolic blood 2019-04-11 181 mm[Hg] [facility] pressure 12:52:00 Diastolic blood 2019-04-11 93 mm[Hg] [facility] pressure 12:52:00 Body temperature 2019-04-11 97.9 [degF] [facility] 12:52:00 Heart Rate 2019-04-11 71 /min [facility] 12:52:00 BP Systolic 2019-03-05 177 mm[Hg] [facility] 08:25:00 BP Diastolic 2019-03-05 80 mm[Hg] [facility] 08:25:00 Height 2019-03-05 60 [in_us] [facility] 08:25:00 Weight 2019-03-05 177.125 [lb_av] [facility] 08:25:00 Body Mass Index 2019-03-05 34.59 kg/m2 [facility] Calculated 08:25:00 Temperature 2019-03-05 98.2 [degF] Method: Oral [facility] 08:25:00 Heart Rate 2019-03-05 78 /min [facility] 08:25:00 Procedures Procedure Date / Time Performed Performing Clinician Sour e CT Chest w contrast [id number] 2019-09-05 00:00:[address] [facility] [address] Chest wo contrast [id number] 2019-03-05 00:00:[address] [facility] [address] Abdomen/Pelvis wo 2019-03-05 00:00:00 [facility] contrast [id number] Encounters Start End Encounter Admission Attending Care Care Encounter Source Date/Time Date/Time Type Type Clinicians Facility Department ID 2023-03-27 2023-03-27 Outpatient CHRISTELLE ROMERO [id number] Christelle 08:30:00 08:30:00 SHERLY montgomery 2023-01-01 2023-01-01 Outpatient PREZAS, CHRISTELLE CHRISTELEL [id number] Christelle 00:00:00 00:00:00 SHERLY Seybol d 2022-12-26 2022-12-26 Outpatient CHRISTELLE JIMENEZ [id number] Christelle 14:30:00 14:30:00 Seybol d 2022-12-25 2022-12-25 Outpatient PREZAS, CHRISTELLE JIMENEZ [id number] Christelle 13:30:00 13:30:00 SHERLY Seybol d 2022-12-21 2022-12-21 Outpatient PREZAS, CHRISTELLE JIMENEZ [id number] Christelle 10:45:00 10:45:00 SHERLY Seybol d 2022-11-29 2022-11-29 Outpatient CHRISTELLE JIMENEZ [id number] Christelle 08:40:00 08:40:00 Seybol d 2022-11-27 2022-11-27 Outpatient PREZAS, CHRISTELLE JIMENEZ [id number] Christelle 00:00:00 00:00:00 SHERLY Seybol d 2022-11-17 2022-11-17 Outpatient PREZAS, CHRISTELLE JIMENEZ [id number] Christelle 08:00:00 08:00:00 SHERLY Seybol d 2022-11-16 2022-11-16 Outpatient PREZAS, CHRISTELLE JIMENEZ [id number] Christelle 00:00:00 00:00:00 SHERLY Seybol d 2022-11-14 2022-11-14 Outpatient LAB90 CHRISTELLE JIMENEZ [id number] Christelle 16:20:00 16:20:00 Seybol d 2022-11-10 2022-11-10 Outpatient LAB90 CHRISTELLE JIMENEZ [id number] Christelle 10:50:00 10:50:00 Seybol d 2022-10-31 2022-10-31 Outpatient PREZAS, CHRISTELLE JIMENEZ [id number] Christelle 00:00:00 00:00:00 SHERLY Seybol d 2022-07-06 2022-07-06 Outpatient PREZAS, CHRISTELLE JIMENEZ [id number] Christelle 00:00:00 00:00:00 SHERLY Seybol d 2022-07-04 2022-07-04 Outpatient PREZAS, CHRISTELLE CHRISTELLE [id number] Christelle 00:00:00 00:00:00 SHERLY Seybol d 2022-06-23 2022-06-23 Outpatient PREZAS, CHRISTELLE CHRISTELLE [id number] Christelle 00:00:00 00:00:00 SHERLY Seybol d 2022-06-15 2022-06-15 Outpatient PREZAS, CHRISTELLE CHRISTELLE [id number] Christelle 00:00:00 00:00:00 SHERLY Seybol d 2022-05-18 2022-05-18 Outpatient PREZAS, CHRISTELLE CHRISTELLE [id number] Christelle 11:15:00 11:15:00 SHERLY Seybol d 2022-04-20 2022-04-20 Outpatient CHRISTELLE JIMENEZ [id number] Christelle 10:15:00 10:15:00 Seybol d 2022-04-20 2022-04-20 Outpatient CHRISTELLE JIMENEZ [id number] Christelle 10:10:00 10:10:00 Seybol d 2022-04-14 2022-04-14 Outpatient LAB90 CHRISTELLE JIMENEZ [id number] Christelle 09:05:00 09:05:00 Seybol d 2022-04-14 2022-04-14 Outpatient PREZAS, CHRISTELLE CHRISTELLE [id number] Christelle 00:00:00 00:00:00 SHERLY Seybol d 2022-04-07 2022-04-07 Outpatient PREZAS, CHRISTELLE JIMENEZ [id number] Christelle 15:45:00 15:45:00 SHERLY Seybol d 2019-04-11 2019-04-11 Appointmen [facility] [id number] [place] 09:30:00 09:30:00 t; ANN MARIE HINTON, David Bro M.D. [facility] 2019-03-05 2019-03-05 [facility] [id number] [place] 08:00:00 08:00:00 t; ANN MARIE HINTON, [facility] M.D. [facility] 2017-08-03 2017-08-03 Outpatient Shira MONTEJO [facility] [id number] [place] 04:31:00 06:40:00 [facility] Results Test Test Test Results Result Source Description Time Comments Comments CT 2019-02- Radiation Dose CTDIVOL = [facility] Chest/Abdomen/P 28 0 (mGy): DLP = 991.41 rachel wo 07:55:00 (mGy-cm)PROCEDURE contrast [id number] INFORMATION:Exam: CT Chest Without ContrastExam date and [...] Route: Oral, Material: REDICAT, Volume: 750 ML;COMPARISON:Unspecified MR L SPINE 01/13/2019 1:03:07 PMFINDINGS:Liver: Grossly normal [...] corticaltrabeculation compatible with hemangiomata. This corresponds with X4reefglybxxta lesions seen on MRI. There is a [...] at 6-12 months, then CTat 18-24 months. (Kathrine et al., Fleischner Society, 2017)CT Abdomen And Pelvis Without Contrast1. Irregularity at the anterior superior endplate of L3 may be related toSchmorl's node or traumatic compression deformity, likely acute or subacute atthe time of prior MRI. No change in vertebral body height2. Hemangiomas at L23. Mild thickening of the adrenal glands is nonspecificArgenis Rhodes MD On 03/11/2019 16:05:56; [id number]--Oaec by: Argenis Rhodes MDDictated Date/time: 03/11/19 16:06Electronically Signed by: Argenis Rhodes MD 03/11/2015:06FINAL REPORT
[2023-01-14] MEDS ORDERED: MORPHINE 4 MG/ML SYR ONE (14:09)
[2023-01-14] MEDS ORDERED: NA CHLORIDE 0.9% 1,000 ML ONE (14:10)
[2023-01-14] MEDS ORDERED: ONDANSETRON 4 MG/2 ML VIAL ONE (14:10)
[2023-01-14 14:21] LABS: Absolute Lymphocytes (CBC) 1.3 K/uL (0.7-4.9); Hematocrit 39.8 % (36.0-45.0); MCV 95.1 fL (80-100); MPV 6.5 fL (7.6-11.3); Platelets 419 thou/uL (152-406); RBC Red Blood Cell Count 4.19 M/uL (3.86-4.86)
[2023-01-14 14:33] LABS: Albumin 3.3 g/dL (3.4-5.0); Bilirubin Total 0.2 mg/dL (0.2-1.0); Protein, Total 7.5 g/dL (6.4-8.2)
[2023-01-14 15:04] LABS: Specific Gravity 1.016 (1.005-1.030); Urine Bacteria <20 /HPF (<20); Urine Bilirubin NEGATIVE (Negative); Urine Blood Negative (Negative); Urine Clarity Clear (Clear); Urine Color Light-Yellow (Yellow); Urine Glucose 1+ (Negative); Urine Mucus Slight /HPF (None Seen); Urine Protein NEGATIVE (Negative); Urine RBC <5 /HPF (None Seen); Urine Urobilinogen Normal (Normal); Urine pH 5.5 (5.0-7.0)
--- NOTE | 2023-01-14 15:56 | RAD REPORT ---
EXAM DESCRIPTION: CT - Abdomen Pelvis W Contrast - 01/14/2023 3:30 pm CLINICAL HISTORY: Abdominal pain. Right flank pain COMPARISON: 2018 TECHNIQUE: Computed axial tomography of the abdomen pelvis was obtained. 100 cc Isovue-300 was admin istered intravenously. Oral contrast was not requested which limits evaluation of bowel and appendix All CT scans are performed using dose optimization technique as appropriate and may include automated exposure control or mA/KV adjustment according to patient size. FINDINGS: Mild fatty infiltration liver The spleen, pancreas, left adrenal gland and right kidney are unremarkable. 1 millimeter nonobstructing left renal calculus 6 millimeter right adrenal nodule unchanged consistent with an adenoma. Normal appendix Small to moderate bilateral inguinal hernias contain fat No evidence of diverticulitis. Small umbilical hernia Hysterectomy. No adnexal mass IMPRESSION: Mild fatty liver Small to moderate bilateral inguinal hernias
--- NOTE | 2023-01-14 16:02 | ER ---
Nurse's Notes [facility] Name: Sangeeta Asif Age: 62 yrs Sex: Female : 1960 Arrival Date: 01/14/2023 Time: 13:39 Bed 5 Private MD: Diagnosis: Right Low Back Pain;Muscle spasm of back Presentation: 01/14 13:51 Chief complaint: Right flank pain and nausea since this morning. Denies urinary s/s. hb Coronavirus screen: At this time, the client does not indicate any symptoms associated with coronavirus-19. Ebola Screen: No symptoms or risks identified at this time. Initial Sepsis Screen: Does the patient meet any 2 criteria? No. Patient's initial sepsis screen is negative. Does the patient have a suspected source of infection? No. Patient's initial sepsis screen is negative. Risk Assessment: Do you want to hurt yourself or someone else? Patient reports no desire to harm self or others. Onset of symptoms was January 14, 2023. 13:51 Method Of Arrival: Wheelchair hb 13:51 Acuity: MICHAEL 3 hb Historical: - Allergies: 13:44 Codeine; mb9 - PMHx: 13:44 Anxiety; Hypercholesterolemia; Hypertensive disorder; mb9 - Immunization history:: Adult Immunizations up to date. - Social history:: Smoking status: Reported history of juuling and/or vaping. Screenin:12 [facility] ED Fall Risk Assessment (Adult) History of falling in the last 3 months, mb9 including since admission No falls in past 3 months (0 pts) Confusion or Disorientation No (0 pts) Intoxicated or Sedated No (0 pts) Impaired Gait No (0 pts) Mobility Assist Device Used No (0 pt) Altered Elimination No (0 pt) Score/Fall Risk Level 0 - 2 = Low Risk Oriented to surroundings, Maintained a safe environment, Educated pt \T\ family on fall prevention, incl call for assistance when getting out of bed. Abuse screen: Denies threats or abuse. Nutritional screening: No deficits noted. Tuberculosis screening: No symptoms or risk factors identified. Assessment: 14:11 General: Appears in no apparent distress. Behavior is calm, cooperative. Pain: mb9 Complains of pain in right low back Pain radiates to right lower quadrant Pain currently is 8 out of 10 on a pain scale. Quality of pain is described as stabbing, throbbing, Pain began 2-3 days ago. Is intermittent. Neuro: Solis Agitation-Sedation Scale (RASS): 0 - Alert and Calm Level of Consciousness is awake, alert, obeys commands, Oriented to person, place, time, situation, Appropriate for age. Cardiovascular: Patient's skin is warm and dry. Respiratory: Airway is patent Respiratory effort is even, unlabored, Respiratory pattern is regular, symmetrical. GI: Abdomen is round non-distended, Bowel sounds present X 4 quads. Abd is soft and non tender X 4 quads. Reports nausea. : Reports urinary frequency. EENT: No signs and/or symptoms were reported regarding the EENT system. Derm: Skin is pink, warm \T\ dry. Musculoskeletal: Range of motion: intact in all extremities. 14:57 Reassessment: Pt assisted to restroom via wheelchair, pt voided and urine sample sent aa5 to lab. Pt placed back in bed, pt requesting pain medication, CORK WIRER was notified. . 15:20 Reassessment: No changes from previously documented assessment. Patient and/or family mb9 updated on plan of care and expected duration. Pain level reassessed. Patient is alert, oriented x 3, equal unlabored respirations, skin warm/dry/pink. 16:26 Reassessment: Patient is alert, oriented x 3, equal unlabored respirations, skin aa5 warm/dry/pink. Vital Signs: 13:51 BP 137 / 60; Pulse 79; Resp 16; Temp 98.8(O); Pulse Ox 100% on R/A; Weight 79.38 kg; hb Height 5 ft. 0 in. ; Pain 10/10; 15:19 BP 126 / 66; Pulse 72; Resp 16; Pulse Ox 99% on R/A; mb9 13:51 Body Mass Index 34.18 (79.38 kg, 152.4 cm) hb 13:51 Pain Scale: Adult hb ED Course: 13:41 Patient arrived in ED. rg4 13:44 Jo Alicia, RN is Primary Nurse. mb9 13:44 Arm band placed on. mb9 13:44 Placed in gown. Bed in low position. Call light in reach. Side rails up X 1. Client mb9 placed on continuous cardiac and pulse oximetry monitoring. NIBP monitoring applied. 13:49 [facility] Calvin [facility] 13:49 Rashel Toledo MD is Attending Physician. [facility] 13:52 Triage completed. hb 14:10 CBC with Diff Sent. mb9 14:10 CMP Sent. mb9 14:10 Lipase Sent. mb9 14:11 Inserted saline lock: 20 gauge in right forearm, using aseptic technique. Blood mb9 collected. 14:12 No provider procedures requiring assistance completed. mb9 15:32 CT Abd/Pelvis - IV Contrast Only In Process Unspecified. EDMS 16:26 IV discontinued, intact, bleeding controlled, No redness/swelling at site. Pressure aa5 dressing applied. Administered Medications: 14:02 Drug: NS 0.9% IV 1000 ml IV at 1 bolus Per protocol; 1000 mL bolus Route: IV; Rate: 1 mb9 bolus; Site: right forearm; 14:02 Drug: Ondansetron IVP 4 mg IVP once; over 2 minutes Route: IVP; Site: right forearm; mb9 14:06 Drug: morphine IVP or IV 4 mg IVP once over 4 mins Route: IVP; Infused Over: 4 mins; mb9 Site: right forearm; 16:06 Not Given (Patient Refused): fentanyl (pf)50 mcg IVP once mb9 16:26 Drug: Hydrocodone-Acetaminophen PO (7.5 mg-325 mg) 1 tabs PO once Route: PO; aa5 Medication: 14:12 VIS not applicable for this client. mb9 Outcome: 16:01 Discharge ordered by . [facility] 16:26 Discharged to home via wheelchair, with significant other, aa5 16:26 Condition: stable 16:26 Discharge instructions given to patient, Instructed on discharge instructions, follow up and referral plans. medication usage, Demonstrated understanding of instructions, follow-up care, medications, Prescriptions given X 2, 16:27 Patient left the ED. aa5 Signatures: Dispatcher [employer] [facility] Yana Novak, RN RN aa5 Tenisha Demarco RN RN hb Garcia, Rubi rg4 Barbara Calvin FNP [employer]GAL [employer] 7 Jo Alicia RN RN mb9
--- NOTE | 2023-01-14 16:02 | EDPHYS ---
Physician Documentation [facility] Name: Sangeeta Asif Age: 62 yrs Sex: Female : 1960 Arrival Date: 01/14/2023 Time: 13:39 Bed 5 Private MD: ED Physician Rashel Toledo HPI: 01/14 13:44 This 62 yrs old Female presents to ER via Wheelchair with complaints of Flank Pain. [facility] 13:44 The patient complains of pain in the right low back. The pain radiates to the right jh7 lower abdomen. Onset: The symptoms/episode began/occurred at 04:00. Associated signs and symptoms: Pertinent positives: nausea, Pertinent negatives: diarrhea, dizziness, fever, vomiting. Severity of pain: in the emergency department the pain is actually worse moderately. Historical: - Allergies: 13:44 Codeine; mb9 - PMHx: 13:44 Anxiety; Hypercholesterolemia; Hypertensive disorder; mb9 - Immunization history:: Adult Immunizations up to date. - Social history:: Smoking status: Reported history of juuling and/or vaping. ROS: 13:44 Constitutional: Negative for fever, chills, and weight loss, Eyes: Negative for injury, jh7 pain, redness, and discharge, Neck: Negative for injury, pain, and swelling, Cardiovascular: Negative for chest pain, palpitations, and edema, Respiratory: Negative for shortness of breath, cough, wheezing, and pleuritic chest pain, MS/Extremity: Negative for injury and deformity, Skin: Negative for injury, rash, and discoloration, Neuro: Negative for headache, weakness, numbness, tingling, and seizure, 13:44 Abdomen/GI: Positive for nausea, Negative for vomiting, diarrhea, constipation, 13:44 : Positive for flank pain, Negative for urinary symptoms, pelvic pain, burning with urination, 13:44 All other systems are negative, Exam: 13:44 Constitutional: This is a well developed, well nourished patient who is awake, alert, jh7 and in no acute distress. Head/Face: Normocephalic, atraumatic. Neck: Trachea midline, no thyromegaly or masses palpated, and no cervical lymphadenopathy. Supple, full range of motion without nuchal rigidity, or vertebral point tenderness. No Meningismus. Cardiovascular: Regular rate and rhythm with a normal S1 and S2. No gallops, murmurs, or rubs. Normal PMI, no JVD. No pulse deficits. Respiratory: Lungs have equal breath sounds bilaterally, clear to auscultation and percussion. No rales, rhonchi or wheezes noted. No increased work of breathing, no retractions or nasal flaring. Skin: Warm, dry with normal turgor. Normal color with no rashes, no lesions, and no evidence of cellulitis. Neuro: Awake and alert, GCS 15, oriented to person, place, time, and situation. Motor strength 5/5 in all extremities. Sensory grossly intact. Normal gait. 13:44 Abdomen/GI: Inspection: abdomen appears normal, Bowel sounds: normal, Palpation: soft, mild abdominal tenderness, in the right lower quadrant, 13:44 : CVA tenderness, on the right, Vital Signs: 13:51 BP 137 / 60; Pulse 79; Resp 16; Temp 98.8(O); Pulse Ox 100% on R/A; Weight 79.38 kg; hb Height 5 ft. 0 in. ; Pain 10/10; 15:19 BP 126 / 66; Pulse 72; Resp 16; Pulse Ox 99% on R/A; mb9 13:51 Body Mass Index 34.18 (79.38 kg, 152.4 cm) hb 13:51 Pain Scale: Adult hb MDM: 13:49 Patient medically screened. [facility] 15:58 Differential diagnosis: nephrolithiasis, pyelonephritis, UTI, diverticulitis, Muscle jh7 strain, cholecystitis. Data reviewed: vital signs, nurses notes, lab test result(s), radiologic studies, CT scan. I considered the following discharge prescriptions or medication management in the emergency department Medications were administered in the Emergency Department. See MAR. Historians other than the Patient: Spouse/Significant Other: . Care significantly affected by the following chronic conditions: Hypertension. Counseling: I had a detailed discussion with the patient and/or guardian regarding the historical points, exam findings, and any diagnostic results supporting the discharge/admit diagnosis, to return to the emergency department if symptoms worsen or persist or if there are any questions or concerns that arise at home. Response to treatment: the patient's symptoms have markedly improved after treatment. 01/14 13:52 Order name: CBC with Diff; Complete Time: 14:33 [facility] 01/14 13:52 Order name: CMP; Complete Time: 14:40 [facility] 01/14 13:52 Order name: Lipase; Complete Time: 14:40 [facility] 01/14 13:52 Order name: Urinalysis w/ reflexes; Complete Time: 15:05 [facility] 01/14 13:52 Order name: CT Abd/Pelvis - IV Contrast Only; Complete Time: 15:57 [facility] 01/14 13:52 Order name: IV Saline Lock; Complete Time: 14:10 [facility] 01/14 13:52 Order name: Labs collected and sent; Complete Time: 14:10 [facility] Administered Medications: 14:02 Drug: NS 0.9% IV 1000 ml IV at 1 bolus Per protocol; 1000 mL bolus Route: IV; Rate: 1 mb9 bolus; Site: right forearm; 14:02 Drug: Ondansetron IVP 4 mg IVP once; over 2 minutes Route: IVP; Site: right forearm; mb9 14:06 Drug: morphine IVP or IV 4 mg IVP once over 4 mins Route: IVP; Infused Over: 4 mins; mb9 Site: right forearm; 16:06 Not Given (Patient Refused): fentanyl (pf)50 mcg IVP once mb9 16:26 Drug: Hydrocodone-Acetaminophen PO (7.5 mg-325 mg) 1 tabs PO once Route: PO; aa5 Disposition Summary: 01/14/23 16:01 Discharge Ordered Notes: Location: Home [facility] Problem: new [facility] Symptoms: have improved [facility] Condition: Stable [facility] Diagnosis - Right Low Back Pain [facility] - Muscle spasm of back [facility] Followup: [facility] - With: Private Physician - When: 2 - 3 days - Reason: Recheck today's complaints Discharge Instructions: - Discharge Summary Sheet [facility] - Acute Back Pain, Adult [facility] - Muscle Cramps and Spasms [facility] Forms: - Medication Reconciliation Form [facility] - Thank You Letter [facility] - Patient Portal Instructions [facility] - Leadership Thank You Letter [facility] Prescriptions: - Naprosyn 500 mg Oral Tablet - take 1 tablet ORAL route 2 times per day take with food; 30 tablet; Refills: 0, 7 Product Selection Permitted - Zanaflex 4 mg Oral Tablet - take 1 tablet ORAL route every 8 hours As needed; 20 tablet; Refills: 0, [facility] Product Selection Permitted Signatures: Dispatcher Yana Miguel RN RN aa5 Tenisha Demarco RN RN Barbara Calvin, CREAM GATHERER CREAM GATHERER jh7 Jo Alicia RN RN mb9
[2023-01-14] MEDS ORDERED: HYDROCODONE/APAP 7.5/325 MG TAB ONE (16:35)
[2023-01-14 17:47] VITALS: TEMP 98.8
[2023-01-14 17:49] VITALS: BP 126/66; O2SAT 99
== END 2023-01-14 16:27 | disposition home or self-care (01) ==
LOC: ER 13:39
DX: M62.830 Muscle spasm of back (principal); I10 Essential (primary) hypertension; Z88.5 Allergy status to narcotic agent
CPT/HCPCS: 85025; 81001; 36415; 83690; 80053; 74177; 96375; 96374; 99284; Q9967; J2405; J7030

== ENCOUNTER → 2023-02-24 | Emergency (ER) | payer BC ==
[~2023-02-24] MED LIST: ACETAMINOPHEN 500 MG TAB ONE; AZITHROMYCIN 250 MG TAB ONE; GUAIFENESIN/DM 5 ML UCUP ONE; IBUPROFEN 400 MG TAB ONE; METOCLOPRAMIDE 10 MG/2mL INJ ONE; NA CHLORIDE 0.9% 2,000 ML ONE; ONDANSETRON 4 MG/2 ML VIAL ONE
--- OUTSIDE RECORDS SUMMARY | 2023-02-24 00:16 | XMS REPORT | Continuity of Care Document ---
Author Name Unknown Address [address] [facility] [address] [place] [address] [facility] thconnect Address [address] [facility] [address] [place] [address] Care Team Providers Care Chair Frame Builder Name Role Phone 3, ES ROOM Attending Clinician Unavailable SHERLY ROMERO Attending Clinician Unavailable OFE KRISHNA Attending Clinician Unavailable MD EMA Attending Clinician Unavailab DONI Munoz Attending Clinician Unavailabl e PL, TECH 1 Attending Clinician Unavailable PEDRO DOMINGO Attending Clinician Unavailable LAB90 Attending Clinician Unavailable ANN MARIE HINTON M.D. Attending Clinician Unavail able DR ARMEN MONTEJO Attending Clinician Unavailable DR ARMEN MONTEJO Admitting Clinician Unavailable Payers Payer Name Policy Type Policy Number Effective Date Expirati on Date Source [facility] 2 [id number] 2022 00:00:00 Problems Condition Name Condition Details Condition Category Status Onset Date Resolution Date Last Treatment Date Treating Clinician Comments Source Well adult exam Well adult exam Disease Active 2022-02 00:00: 00 Christelle Sekunold - Externa l Primary hypertensi on Primary hypertensi on Disease Active 04-07 00:00: 00 Christelle Sekunold - Externa l Mixed hyperlipid emia Mixed hyperlipid emia Disease Active 04-07 00:00: 00 Christelle Seybold - Externa l Prediabete s Prediabete s Disease Active 04-07 00:00: 00 Christelle Davis - Externa l Class 1 obesity due to excess calories with serious comorbidit y and body mass index (BMI) of 34.0 to 34.9 in adult Class 1 obesity due to excess calories with serious comorbidit y and body mass index (BMI) of 34.0 to 34.9 in adult Disease Active 04-07 00:00: 00 Christelle Davis - Externa l Class 1 obesity due to excess calories with serious comorbidit y and body mass index (BMI) of 34.0 to 34.9 in adult Class 1 obesity due to excess calories with serious comorbidit y and body mass index (BMI) of 34.0 to 34.9 in adult Disease Active 04-07 00:00: 00 Christelle Davis - Externa l Other closed fracture of second lumbar vertebra, initial encounter Other closed fracture of second lumbar vertebra, initial encounter Problem Active [facility] Hemangioma of other sites Hemangioma of other sites Problem Active [facility] Allergies, Adverse Reactions, Alerts Allergy Name Allergy Type Status Severity Reaction(s) Onset Date Inactive Date Treating Clinician Comments Source Moses Strong ty to adverse reaction s Active Itching 04-07 00:00: 00 Christelle Davis - Externa l Social History Social Habit Start Date Stop Date Quantity Comments Source Gender identity Kasandra Rosadoold - External Sexual orientation K elsey ybold - External History SDOH Alcohol Frequency Christelle morillo - External History SDOH Alcohol Std Drinks Christelle La ybold - External History SDOH Alcohol Binge Christelle Davis - External Alcohol intake 2022-12-25 00:00:00 2022-12-25 00:00:00 Current drinker of alcohol (finding) Christelle Davis - External History of Social function 2022-10-30 00:00:00 2022-10-30 00:00:00 Christelle Davis - External Alcohol Comment 2022-04-07 00:00:00 2022-04-07 00:00:00 moderately Christelle Davis - External Education - What is the highest level of school you have completed or the highest degree you have received? 2022-04-07 00:00:00 2022-04-07 00:00:00 GED or equivalent Christelle Davis - External Tobacco use and exposure 2022-04-07 00:00:00 2022-04-07 00:00:00 Smokeless tobacco non-user Christelle Lakunludmila Cabrera Sex Ass[birth year] At 1960 00:00:00 1960 00:00:00 Christelle Davis Miriam External Smoking Status Start Date Stop Date Source Never smoked tobacco Christelle Pineda External Medications Ordered Medication Name Filled Medication Name Start Date Stop Date Current Medication? Ordering Clinician Indication Dosage Frequency Signature (SIG) Comments Components Source Mupirocin (BACTROBAN) 2 % apply externally Ointment 2022-02 00:00: 00 Yes [id number] Apply 1 applicatio n. topically 2 times daily. Christelle freeman Semaglutide -WEGOVY-Bogdan ght Management 0.25 MG/0.5ML Subcutaneou s Solution Auto-inject or 2022-02 00:00: 00 Yes [id number] .25mg Inject 0.25 mg into the skin once a week. Christelle freeman Semaglutide -WEGOVY-[employer]ogdan g[employer] Management 0.25 MG/0.5ML Subcutaneou s Solution Auto-inject or 2022-02 00:00: 00 Yes [id number] .25mg Inject 0.25 mg into the skin once a week. Christelle freeman Metformin HCl ER 500 MG oral TABLET SR 24 HR 10-31 00:00: 00 Yes 500mg Take 1 tablet (500 mg total) by mouth daily (with breakfast) . Christelle freeman Metformin HCl ER 500 MG oral TABLET SR 24 HR 10-31 00:00: 00 Yes 500mg Take 1 tablet (500 mg total) by mouth daily (with breakfast) . Christelle freeman Tizanidine HCl 2 MG oral Tablet 07-05 00:00: 00 11-17 00:00 :00 No [id number] TAKE 1 TABLET BY MOUTH NIGHTLY NEEDED FOR MUSCLE SPASMS Christelle freeman Simvastatin 10 MG oral Tablet 06-29 00:00: 00 Yes 10mg Take 1 tablet (10 mg total) by mouth nightly Christelle freeman Simvastatin 10 MG oral Tablet 06-29 00:00: 00 Yes 10mg Take 1 tablet (10 mg total) by mouth nightly Christelle freeman Meloxicam 15 MG oral Tablet 06-15 00:00: 00 11-17 00:00 :00 No [id number] TAKE 1 TABLET BY MOUTH EVERY DAY NEEDED FOR PAIN Christelle freeman HYDROcodone -Acetaminop hen ([place]) 5-325 MG oral Tablet 05-18 11:06: 37 05-18 00:00 :00 No [place] 5 mg-325 mg tablet Take 1 tablet every 6-8 hours by oral route. Christelle freeman Lisinopril 20 MG oral Tablet 05-18 11:06: 27 05-18 00:00 :00 No 20mg Take 1 tablet (20 mg total) by mouth 2 times daily Christelle freeman Amlodipine Besylate 10 MG oral Tablet 05-18 11:06: 27 05-18 00:00 :00 No 10mg Take 1 tablet (10 mg total) by mouth daily Christelle freeman Metformin HCl 500 MG oral Tablet 05-18 11:01: 11 05-18 00:00 :00 No 500mg Take 1 tablet (500 mg total) by mouth daily Take 1 tablet daily in evening Christelle freeman Simvastatin 10 MG oral Tablet 05-18 10:58: 03 Yes 10mg Take 1 tablet (10 mg total) by mouth every day at bedtime Christelle freeman Lisinopril 40 MG oral Tablet 05-18 00:00: 00 Yes [id number] 40mg Take 1 tablet (40 mg total) by mouth daily Christelle freeman Amlodipine Besylate 10 MG oral Tablet 05-18 00:00: 00 Yes [id number] 10mg Take 1 tablet (10 mg total) by mouth daily Christelle freeman Metformin HCl 500 MG oral Tablet 05-18 00:00: 00 Yes [id number] 500mg Take 1 tablet (500 mg total) by mouth daily (with breakfast) Take 1 tablet daily in evening Christelle freeman Lisinopril 40 MG oral Tablet 05-18 00:00: 00 Yes [id number] 40mg Take 1 tablet (40 mg total) by mouth daily Christelle freeman Amlodipine Besylate 10 MG oral Tablet 05-18 00:00: 00 Yes [id number] 10mg Take 1 tablet (10 mg total) by mouth daily Christelle freeman Tizanidine HCl 2 MG oral Tablet 05-18 00:00: 00 Yes [id number] 2mg QD Take 1 tablet (2 mg total) by mouth nightly as needed for muscle spasms Christelle freeman Lisinopril 40 MG oral Tablet 05-18 00:00: 00 Yes [id number] 40mg Take 1 tablet (40 mg total) by mouth daily Christelle freeman Amlodipine Besylate 10 MG oral Tablet 05-18 00:00: 00 Yes [id number] 10mg Take 1 tablet (10 mg total) by mouth daily Christelle freeman Amlodipine Besylate 10 MG oral Tablet 04-07 15:51: 09 Yes 10mg Take 10 mg by mouth daily Christelle freeman Simvastatin 10 MG oral Tablet 04-07 15:46: 42 Yes 10mg Take 10 mg by mouth every day at bedtime Christelle freeman Lisinopril 20 MG oral Tablet 04-07 15:46: 41 Yes 20mg Take 20 mg by mouth 2 times daily Christelle freeman Metformin HCl 500 MG oral Tablet 04-07 15:46: 41 Yes 500mg Take 500 mg by mouth daily Take 1 tablet daily in evening Christelle freeman Meloxicam 15 MG oral Tablet 04-07 00:00: 00 Yes [id number] 15mg QD Take 1 tablet (15 mg total) by mouth daily as needed for pain Christelle Seybold - Externa l Tizanidine HCl 2 MG oral Tablet 04-07 00:00: 00 Yes [id number] 2mg QD Take 1 tablet (2 mg total) by mouth nightly as needed for muscle spasms Christelle Davis - Externa l Meloxicam 15 MG oral Tablet 04-07 00:00: 00 Yes [id number] 15mg QD Take 1 tablet (15 mg total) by mouth daily as needed for pain Christelle Davis - Externa l Tizanidine HCl 2 MG oral Tablet 04-07 00:00: 00 05-18 00:00 :00 No [id number] 2mg QD Take 1 tablet (2 mg total) by mouth nightly as needed for muscle spasms Christelle Davis - Externa l traMADol HCl - 50 MG Oral Tablet traMADol HCl - 50 MG Oral Tablet 03-05 00:00: 00 Yes [place] PA-C 1 Q6H TAKE 1 TABLET EVERY 6 HOURS PRN [facility] Immunizations Ordered Immunization Name Filled Immunization Name Date Status Comments Source Tdap- (Boostrix, Adacel) Unknown Completed Christelle Rosadoold - External Tdap- (Boostrix, Adacel) Unknown Completed Christelle Davis - External Vital Signs Vital Name Observation Time Observation Value Comments S ource Systolic blood pressure 2022-12-25 19:10:00 146 mm[Hg] Christelle Davis - External Diastolic blood pressure 2022-12-25 19:10:00 71 mm[Hg] Christelle Davis - External Heart rate 2022-12-25 19:10:00 87 /min Christelle Davis - External Body temperature 2022-12-25 19:10:00 36.11 Lilly Christelle Davis - External Respiratory rate 2022-12-25 19:10:00 15 /min Christelle Davis - External Body height 2022-12-25 19:10:00 152.4 cm Christelle Davis - External Body weight 2022-12-25 19:10:00 79.198 kg Christelle Davis - External BMI 2022-12-25 19:10:00 34.10 kg/m2 Christelle Davis - External Oxygen saturation in Arterial blood by Pulse oximetry 2022-12-25 19:10:00 99 /min Christelle Seybold - External Body height 2022-11-17 12:52:00 152.4 cm Christelle Seybold - External Body weight 2022-11-17 12:52:00 79.379 kg Christelle Seybold - External BMI 2022-11-17 12:52:00 34.18 kg/m2 Christelle Seybold - External Systolic blood pressure 2022-11-17 12:52:00 132 mm[Hg] Christelle Seybold - External Diastolic blood pressure 2022-11-17 12:52:00 72 mm[Hg] Christelle Seybold - External Heart rate 2022-11-17 12:52:00 77 /min Christelle Seybold - External Body temperature 2022-11-17 12:52:00 36.22 Lilly Christelle Seybold - External Respiratory rate 2022-11-17 12:52:00 14 /min Christelle Seybold - External Systolic blood pressure 2022-05-18 15:55:00 142 mm[Hg] Christelle Seybold - External Diastolic blood pressure 2022-05-18 15:55:00 79 mm[Hg] Christelle Seybold - External Heart rate 2022-05-18 15:55:00 79 /min Christelle Seybold - External Body temperature 2022-05-18 15:55:00 36.44 Lilly Christelle Seybold - External Respiratory rate 2022-05-18 15:55:00 15 /min Christelle Seybold - External Body height 2022-05-18 15:55:00 152.4 cm Christelle Seybold - External Body weight 2022-05-18 15:55:00 79.833 kg Christelle Seybold - External BMI 2022-05-18 15:55:00 34.37 kg/m2 Christelle Laybold - External Oxygen saturation in Arterial blood by Pulse oximetry 2022-05-18 15:55:00 96 /min Christelle Seybold - External Systolic blood pressure 2022-04-07 21:40:00 136 mm[Hg] Christelle Seybold - External Diastolic blood pressure 2022-04-07 21:40:00 76 mm[Hg] Christelle Seybold - External Heart rate 2022-04-07 21:40:00 86 /min Christelle Seybold - External Body temperature 2022-04-07 21:40:00 37.11 Lilly Christelle Lakunludmila - External Respiratory rate 2022-04-07 21:40:00 20 /min Christelle kunludmila - External Body height 2022-04-07 21:40:00 152.4 cm Christelle Sechelle - External Body weight 2022-04-07 21:40:00 80.105 kg Christelle Sekunludmila - External BMI 2022-04-07 21:40:00 34.49 kg/m2 Christelle Sekunludmila - External Oxygen saturation in Arterial blood by Pulse oximetry 2022-04-07 21:40:00 97 /min Christelle chelle - External Systolic blood pressure 2019-04-11 12:52:00 181 mm[Hg] [facility] Diastolic blood pressure 2019-04-11 12:52:00 93 mm[Hg] [facility] Body temperature 2019-04-11 12:52:00 97.9 [degF] [facility] Heart Rate 2019-04-11 12:52:00 71 /min [facility] BP Systolic 2019-03-05 08:25:00 177 mm[Hg] [facility] BP Diastolic 2019-03-05 08:25:00 80 mm[Hg] [facility] Height 2019-03-05 08:25:00 60 [in_us] [facility] Weight 2019-03-05 08:25:00 177.125 [lb_av] [facility] Body Mass Index Calculated 2019-03-05 08:25:00 34.59 kg/m2 [facility] Temperature 2019-03-05 08:25:00 98.2 [degF] Method: Oral [facility] Heart Rate 2019-03-05 08:25:00 78 /min [facility] Procedures Procedure Date / Time Performed Performing Clinicia n Source CT Chest w contrast [id number] 2019-09-05 00:00:[address] [facility] [address] Chest wo contrast [id number] 2019-03-05 00:00:[address] [facility] [address] Abdomen/Pelvis wo contrast [id number] 2019-03-05 00:00:00 [facility] Encounters Start Date/Time End Date/Time Encounter Type Admission Type Attending Clinicians Care Facility Care Department Encounter ID Source 2023-04-19 19:30:00 2023-04-19 19:30:00 Outpatient 3, ES CHRISTELLE JIMENEZ [id number] Christelle Davis 2023-03-27 08:30:00 2023-03-27 08:30:00 Outpatient FREDDIEBETSYSHERLY Martinez CHRISTELLE JIMENEZ [id number] [facility] 2023-03-22 08:30:00 2023-03-22 08:30:00 Outpatient TOMI OFEKRYSTAL JIMENEZ [id number] [facility] 2023-02-13 00:00:00 2023-02-13 00:00:00 Outpatient MD CHRISTELLE VIZCARRA [id number] Christelle Seludmila 2023-02-13 00:00:00 2023-02-13 00:00:00 Outpatient MD CHRISTELLE VIZCARRA [id number] Christelle [facility] 2023-02-07 00:00:00 2023-02-07 00:00:00 Outpatient DONI MONTENEGRO [id number] [facility] 2023-02-06 10:30:00 2023-02-06 10:30:00 Outpatient PLSARAH [id number] [facility] 2023-02-06 00:00:00 2023-02-06 00:00:00 Outpatient SHERLY ROMERO [id number] [facility] 2023-02-06 00:00:00 2023-02-06 00:00:00 Outpatient MD CHRISTELLE VIZCARRA [id number] [facility] 2023-02-06 00:00:00 2023-02-06 00:00:00 Outpatient FREDDIESHERLY RIVAS [id number] [facility] 2023-02-01 00:00:00 2023-02-01 00:00:00 Outpatient PEDRO DOMINGO [id number] [facility] 2023-01-31 10:00:00 2023-01-31 10:00:[address] TECH CHRISTELLE JIMENEZ [id number] [facility] 2023-01-31 00:00:00 2023-01-31 00:00:00 Outpatient MD CHRISTELLE VIZCARRA [id number] Christelle [facility] 2023-01-09 00:00:00 2023-01-09 00:00:00 Outpatient PREZAS, SHERLY JIMENEZ CHRISTELLE [id number] Christelle [facility] 2023-01-01 00:00:00 2023-01-01 00:00:00 Outpatient PREZAS, SHERLY JIMNEEZ CHRISTELLE [id number] Christelle [facility] 2022-12-26 14:30:00 2022-12-26 14:30:00 Outpatient CHRISTELLE CHRISTELLE [id number] Christelle [facility] 2022-12-25 13:30:00 2022-12-25 13:30:00 Outpatient PREZAS, SHERLY JIMENEZ CHRISTELLE [id number] Christelle [facility] 2022-12-21 10:45:00 2022-12-21 10:45:00 Outpatient PREZAS, SHERLY JIMENEZ CHRISTELLE [id number] Christelle [facility] 2022-11-29 08:40:00 2022-11-29 08:40:00 Outpatient CHRISTELLE JIMENEZ [id number] Christelle [facility] 2022-11-27 00:00:00 2022-11-27 00:00:00 Outpatient PREZAS, SHERLY JIMENEZ CHRISTELLE [id number] Christelle [facility] 2022-11-17 08:00:00 2022-11-17 08:00:00 Outpatient PREZAS, SHERLY JIMENEZ CHRISTELLE [id number] Christelle [facility] 2022-11-16 00:00:00 2022-11-16 00:00:00 Outpatient PREZAS, SHERLY JIMENEZ [facility] [id number] [facility] 2022-[facility]-14 16:20:00 2022-11-14 16:20:00 Outpatient LAB90 CHRISTELLE JIMENEZ [id number] Christelle [facility] 2022-11-10 10:50:00 2022-11-10 10:50:00 Outpatient LAB90 CHRISTELLE JIMENEZ [id number] Christelle [facility] 2022-10-31 00:00:00 2022-10-31 00:00:00 Outpatient PREZAS, SHERLY CHRISTELLE [facility]IMENE[facility] [id number] [facility] 2022-07-06 00:00:00 2022-07-06 00:00:00 Outpatient PREZAS, SHERLY JIEMNEZ [id number] Christelle Davis 2022-07-04 00:00:00 2022-07-04 00:00:00 Outpatient PREZAS, SHERLY JIMENEZ [id number] Christelle Davis 2022-06-23 00:00:00 2022-06-23 00:00:00 Outpatient PREZAS, SHERLY JIMENEZ [id number] Christelle Davis 2022-06-15 00:00:00 2022-06-15 00:00:00 Outpatient PREZAS, SHERLY JIMENEZ [id number] Christelle Davis 2022-05-18 11:15:00 2022-05-18 11:15:00 Outpatient PREZAS, SHERLY JIMENEZ [id number] Christelle Davis 2022-04-20 10:15:00 2022-04-20 10:15:00 Outpatient CHRISTELLE CHRISTELLE [id number] Christelle Davis 2022-04-20 10:10:00 2022-04-20 10:10:00 Outpatient CHRISTELLE JIMENEZ [id number] Christelle Davis 2022-04-14 09:05:00 2022-04-14 09:05:00 Outpatient LAB90 CHRISTELLE CHRISTELLE [id number] Christelle Davis 2022-04-14 00:00:00 2022-04-14 00:00:00 Outpatient PREZAS, SHERLY JIMENEZ CHRISTELLE [id number] Christelle [facility] 2022-04-07 15:45:00 2022-04-07 15:45:00 Outpatient PREZAS, SHERLY JIMENEZ [id number] Christelle [facility] 2019-04-11 09:30:00 2019-04-11 09:30:00 Isa woody; ANN MARIE HINTON M.D. CONRAD, ERNEST, M.D. [facility]oped[facility] at [facility] [id number] [facility] 2019-03-05 08:00:00 2019-03-05 08:00:00 Isa woody; ANN MARIE HINTON M.D. CONRAD, ERNEST, M.D. [facility] [id number] [facility] 2017-08-03 04:31:00 2017-08-03 06:40:00 Outpatient ARMEN CADET [facility] [id number] [facility] Results Test Description Test Time Test Comments Results Result Comments Source CT Chest/Abdomen/P rachel wo contrast [id number] 07:55:00 Radiation Dose CTDIVOL = 0 (mGy): DLP = 991.41 (mGy-cm)PROCEDURE INFORMATION:Exam: CT Chest Without ContrastExam date and [...] corticaltrabeculation compatible with hemangiomata. This corresponds with [id number] lesions seen on MRI. There is a [...] is nonspecificArgenis Rhodes MD On 03/11/2019 16:05:56; [id number] by: Argneis Rhodes MDDictated Date/time: 03/11/19 16:06Electronically Signed by: Argenis Rhodes MD 03/11/2015:06FINAL REPORT [facility]
[2023-02-24 01:19] LABS: Absolute Lymphocytes (CBC) 0.4 K/uL (0.7-4.9); Hematocrit 37.8 % (36.0-45.0); Lymphocytes % 5.8 % (15.3-44.8); MCV 95.1 fL (80-100); MPV 6.6 fL (7.6-11.3); Platelets 415 thou/uL (152-406); RBC Red Blood Cell Count 3.98 M/uL (3.86-4.86)
[2023-02-24 01:31] LABS: Protime INR 1.06
[2023-02-24 01:43] LABS: Albumin 3.6 g/dL (3.4-5.0); Bilirubin Direct 0.1 mg/dL (0-0.2); Bilirubin Indirect, Calculated 0.2 mg/dL (0.2-0.8); Bilirubin Total 0.3 mg/dL (0.2-1.0); C-Reactive Protein 18.7 mg/L (<3.00); Troponin High Sensitivity 5.4 pg/mL (<58.9)
--- NOTE | 2023-02-24 03:14 | EDPHYS ---
Physician Documentation [facility] Name: Sangeeta Asif Age: 62 yrs Sex: Female : 1960 Arrival Date: 02/24/2023 Time: 00:12 Bed 14 Private MD: ED Physician David Dumas HPI: 02/24 00:18 This 62 yrs old Female presents to ER via Unassigned with complaints of gen sp4 complaint. 00:19 PMH - PMHx: Anxiety; Hypercholesterolemia; Hypertensive disorder; . sp4 01:27 Patient presents with 3 days of generalized malaise, feeling unwell, shortness of sp4 breath, cough, and developing fever in the past 24 hours. Patient reports persistent cough and shortness of breath. Patient febrile on arrival 102.8.. Historical: - Allergies: 00:27 Codeine; lg3 - Home Meds: 00:27 lisinopril 20 mg Oral tab 1 tab once daily [Active]; metformin 500 mg Oral tr24 1 tab lg3 once daily [Active]; simvastatin 10 mg Oral tab 1 tab once daily [Active]; - PMHx: 00:27 Anxiety; Hypercholesterolemia; Hypertensive disorder; Diabetes mellitus; lg3 - PSHx: 00:27 None; lg3 - Immunization history:: Adult Immunizations up to date, Client reports having NOT received the Covid vaccine. Flu vaccine is not up to date. - Social history:: Smoking status: Reported history of juuling and/or vaping. Patient uses alcohol, on a daily basis. Patient/guardian denies using street drugs. - Family history:: not pertinent. ROS: 01:27 Constitutional: Positive fever, positive chills, positive cough, positive shortness of sp4 breath, positive feeling malaise and fatigue 01:27 All other systems are negative, 01:29 Constitutional: Positive body aches sp4 01:29 All other systems are negative, Exam: 01:29 Constitutional: This is a well developed, well nourished patient who is awake, alert, sp4 febrile on arrival, tachycardic, ill-appearing but nontoxic Head/Face: Normocephalic, atraumatic. Facial plethora Eyes: Pupils equal round and reactive to light, extra-ocular motions intact. Lids and lashes normal. Conjunctiva and sclera are not injected. Cornea within normal limits. Periorbital areas with no swelling, redness, or edema. ENT: Nares patent. No nasal discharge, no septal abnormalities noted. Tympanic membranes are normal and external auditory canals are clear. Oropharynx with no redness, swelling, or masses, exudates, or evidence of obstruction, uvula midline. Mucous membranes moist. Neck: Trachea midline, no thyromegaly or masses palpated, and no cervical lymphadenopathy. Supple, full range of motion without nuchal rigidity, or vertebral point tenderness. Chest/axilla: Normal chest wall appearance and motion. Nontender with no deformity. No lesions are appreciated. Cardiovascular: Regular rate and rhythm with a normal S1 and S2. No gallops, murmurs, or rubs. Normal PMI, no JVD. No pulse deficits. Respiratory: Lungs have equal breath sounds bilaterally, clear to auscultation and percussion. No rales, rhonchi or wheezes noted. No increased work of breathing, no retractions or nasal flaring. Abdomen/GI: Soft, non-tender, with normal bowel sounds. No distension or tympany. No guarding or rebound. No evidence of tenderness throughout. Back: No spinal tenderness. No costovertebral tenderness. There is sacral decubitus ulcer that is covered by the wound VAC. Skin: Warm, dry with normal turgor. Normal color with no rashes, no lesions, and no evidence of cellulitis. MS/ Extremity: Pulses equal, no cyanosis. Neurovascular intact. Full, normal range of motion. Neuro: Awake and alert, GCS 15, oriented to person, place, time, and situation. Cranial nerves II-XII grossly intact. Motor strength 5/5 in all extremities. Sensory grossly intact. Psych: Awake, alert, with orientation to person, place and time. Behavior, mood, and affect are within normal limits 01:51 ECG was reviewed by the Attending Physician. EKG time 0 144, sinus tachycardia at the sp4 rate of 127, otherwise normal EKG Vital Signs: 00:25 BP 131 / 76; Pulse 124; Resp 19 S; Temp 102.8(O); Pulse Ox 97% on R/A; Weight 79.38 kg lg3 (R); Height 5 ft. 0 in. (R); 01:24 BP 135 / 80; Pulse 123; Resp 26 S; Pulse Ox 95% on R/A; jw7 02:14 BP 146 / 48; Pulse 114; Resp 23 S; Pulse Ox 95% on R/A; jw7 03:33 BP 141 / 82; Pulse 100; Resp 20 S; Temp 100(O); Pulse Ox 100% on R/A; jw7 00:25 Body Mass Index 34.18 (79.38 kg, 152.4 cm) lg3 MDM: 00:20 Patient medically screened. sp4 03:08 ED course: Chest - EXAM: XR Chest, 1 View CLINICAL HISTORY: The patient is 62 years old sp4 and is Female; CHEST PAIN TECHNIQUE: Frontal view of the chest. COMPARISON: No relevant prior studies available. FINDINGS: Lungs: Unremarkable. No consolidation. Pleural space: Unremarkable. No pneumothorax. Heart: Unremarkable. Mediastinum: Unremarkable. Normal mediastinal contour. Bones/joints: No acute findings. IMPRESSION: No acute findings in the chest. . 03:12 Differential Diagnosis altered mental status, sepsis, flu. Data reviewed: vital signs, sp4 nurses notes, lab test result(s), Flu: negative EKG, radiologic studies, plain films. Consideration of Admission/Observation Escalation of care including admission/observation considered. ED course: Patient is stable for discharge home with p.o. Zithromax for pharyngitis, ondansetron for nausea, ibuprofen 800 mg every 6 hours for fever, dextromethorphan for cough, was advised to supplement with Tylenol for fever or pain . Will advise home quarantine for the next 3 days.. 02/24 00:20 Order name: COVID-19 SARS RT PCR; Complete Time: 02:16 4 02/24 00:20 Order name: Influenza Screen (a \T\ B); Complete Time: :43 4 02/24 00:20 Order name: Basic Metabolic Panel; Complete Time: :49 sp4 02/24 00:20 Order name: CBC with Diff; Complete Time: :43 4 02/24 00:20 Order name: LFT's; Complete Time: :49 sp4 02/24 00:20 Order name: Magnesium; Complete Time: :49 sp4 02/24 00:20 Order name: NT PRO-BNP; Complete Time: :49 sp4 02/24 00:20 Order name: PT-INR; Complete Time: 01:43 02/24 00:20 Order name: Troponin HS; Complete Time: :49 02/24 00:20 Order name: CRP; Complete Time: :02/24 00:31 Order name: Blood Culture Adult (2) 02/24 00:34 Order name: Lactate w/ 2H reflex if indic.; Complete Time: :49 02/24 00:20 Order name: XRAY Chest (1 view) 02/24 00:20 Order name: EKG; Complete Time: 00:20 02/24 00:20 Order name: Cardiac monitoring; Complete Time: :02/24 00:20 Order name: EKG - Nurse/Tech; Complete Time: :02/24 00:20 Order name: IV Saline Lock; Complete Time: :02/24 00:20 Order name: Labs collected and sent; Complete Time: : 02/24 00:20 Order name: O2 Per Protocol; Complete Time: :02/24 00:20 Order name: O2 Sat Monitoring; Complete Time: : EC:51 Rate is 127 beats/min. Rhythm is regular, Sinus tachycardia. QRS [place] is Normal. [place] sp4 interval is normal. QRS interval is normal. QT interval is normal. No Q waves. T waves are Normal. No ST changes noted. Clinical impression: No evidence of ischemia. Interpreted by me. Reviewed by me. Administered Medications: 01:02 Drug: Acetaminophen PO 1000 mg PO once Route: PO; jw7 02:15 Follow up: Response: No adverse reaction; Marked relief of symptoms jw7 01:02 Drug: Ibuprofen PO 800 mg PO once Route: PO; jw7 02:15 Follow up: Response: No adverse reaction; Marked relief of symptoms jw7 01:25 Drug: Ondansetron IVP 4 mg IVP once; over 2 minutes Route: IVP; Site: left antecubital; jw7 02:15 Follow up: Response: No adverse reaction; Marked relief of symptoms jw7 01:25 Drug: NS 0.9% IV 1000 ml IV at 1 bolus Per protocol; 1000 mL bolus Route: IV; Rate: 1 jw7 bolus; Site: left antecubital; 03:36 Follow up: Response: No adverse reaction; IV Status: Completed infusion; IV Intake: jw7 1000ml 01:25 Drug: NS 0.9% IV 1000 ml IV at 250 ml/hr continuous Route: IV; Rate: 250 ml/hr; Site: [facility] left antecubital; 03:36 Follow up: Response: No adverse reaction; IV Status: Order to discontinue infusion; IV jw7 Intake: 500ml 01:25 Drug: metoCLOPramide IVP 10 mg IVP once; over 1 to 2 minutes Route: IVP; Site: left [facility] antecubital; 02:15 Follow up: Response: No adverse reaction jw7 01:58 Drug: Dextromethorphan-Guaifenesin PO Liquid 10 mg-100 mg/5 mL 10 ml PO once Route: PO; jw7 03:34 Follow up: Response: No adverse reaction jw7 01:58 Drug: AZITHromycin PO 500 mg PO once Route: PO; jw7 03:34 Follow up: Response: No adverse reaction jw7 Disposition Summary: 02/24/23 03:14 Discharge Ordered Problem: new sp4 Symptoms: have improved sp4 Condition: Stable sp4 Diagnosis - Acute pharyngitis, unspecified sp4 - Fever, unspecified sp4 - Acute febrile illness, nausea, body aches sp4 Followup: sp4 - With: Private Physician - When: 7 - 10 days - Reason: Recheck today's complaints Discharge Instructions: - Discharge Summary Sheet sp4 - Pharyngitis sp4 - Clear Liquid Diet, Adult, Xxio-dl-Chfo sp4 Forms: - Work release form lg3 - Patient Portal Instructions sp4 Prescriptions: - dextromethorphan-guaifenesin 20-400 mg Oral tablet - take 1 tablet ORAL route every 6 hours PRN cough; 60 tablet; Refills: 0, sp4 Product Selection Permitted - Ibuprofen 800 mg Oral Tablet - take 1 tablet ORAL route every 8 hours As needed take with food; 30 tablet; sp4 Refills: 0, Product Selection Permitted - Zithromax Z-Joey 250 mg Oral Tablet - take 1 tablet ORAL route as directed for 5 days Day 1 - take two (2) tablets sp4 one time. Day 2, 3, 4 , 5 take one (1) tablet once daily.; 6 tablet; Refills: 0, Product Selection Permitted - ondansetron 8 mg Oral Tablet,disintegrating - take 1 tablet ORAL route every 8 hours PRN nausea; 30 tablet; Refills: 0, sp4 Product Selection Permitted Signatures: Dispatcher [employer] Brenda Bruce RN RN lg3 Oksana Beebe RN RN jw7 David Dumas MD MD sp4 Corrections: (The following items were deleted from the chart) 00:31 00:27 Home Meds: montelukast 10 mg Oral tab 1 tab once daily; lg3 lg3
--- NOTE | 2023-02-24 03:14 | ER ---
Nurse's Notes [facility] Name: aSngeeta Asif Age: 62 yrs Sex: Female : 1960 Arrival Date: 02/24/2023 Time: 00:12 Bed 14 Private MD: Diagnosis: Acute pharyngitis, unspecified;Fever, unspecified;Acute febrile illness, nausea, body aches Presentation: 02/24 00:25 Chief complaint: Patient states: started feeling bad a few days ago but woke up tonight lg3 with fever, cough, SOB, body aches. Coronavirus screen: Client denies travel out of the [place] in the last 14 days. Client presents with at least one sign or symptom that may indicate coronavirus-19. Standard/surgical mask placed on the client. Ebola Screen: No symptoms or risks identified at this time. Initial Sepsis Screen: Does the patient meet any 2 criteria? Temp <36.0*C (96.8*F)) or > 38.3*C (100.9*F). HR > 90 bpm. Yes Does the patient have a suspected source of infection? Yes: Productive cough/pneumonia If YES to both, name of provider notified: David Dumas MD. Risk Assessment: Do you want to hurt yourself or someone else? Patient reports no desire to harm self or others. Onset of symptoms was February 24, 2023. 00:25 Method Of Arrival: Wheelchair lg3 00:25 Acuity: MICHAEL 3 lg3 Triage Assessment: 00:27 General: Appears in no apparent distress. uncomfortable, Behavior is calm, cooperative. lg3 Pain: Complains of pain in chest. EENT: Reports nasal congestion nasal discharge. Neuro: No deficits noted. Solis Agitation-Sedation Scale (RASS): 0 - Alert and Calm Level of Consciousness is awake, alert, obeys commands, Oriented to person, place, time, situation, Reports headache weakness. Cardiovascular: No deficits noted. Capillary refill < 3 seconds Clubbing of nail beds is absent JVD is absent Patient's skin is warm and dry. Respiratory: Reports shortness of breath cough that is Airway is patent Trachea midline Respiratory effort is even, unlabored, Respiratory pattern is regular, symmetrical, Onset: The symptoms/episode began/occurred yesterday, the patient has mild shortness of breath. GI: No deficits noted. No signs and/or symptoms were reported involving the gastrointestinal system. : No deficits noted. No signs and/or symptoms were reported regarding the genitourinary system. Derm: No deficits noted. No signs and/or symptoms reported regarding the dermatologic system. Skin is intact, is healthy with good turgor, Skin is dry, Skin is normal, Skin temperature is warm. Musculoskeletal: No deficits noted. Circulation, motion, and sensation intact. Range of motion: intact in all extremities. Historical: - Allergies: 00:27 Codeine; lg3 - Home Meds: 00:27 lisinopril 20 mg Oral tab 1 tab once daily [Active]; metformin 500 mg Oral tr24 1 tab lg3 once daily [Active]; simvastatin 10 mg Oral tab 1 tab once daily [Active]; - PMHx: 00:27 Anxiety; Hypercholesterolemia; Hypertensive disorder; Diabetes mellitus; lg3 - PSHx: 00:27 None; lg3 - Immunization history:: Adult Immunizations up to date, Client reports having NOT received the Covid vaccine. Flu vaccine is not up to date. - Social history:: Smoking status: Reported history of juuling and/or vaping. Patient uses alcohol, on a daily basis. Patient/guardian denies using street drugs. - Family history:: not pertinent. Screenin:36 [facility] ED Fall Risk Assessment (Adult) History of falling in the last 3 months, jw7 including since admission No falls in past 3 months (0 pts) Confusion or Disorientation No (0 pts) Intoxicated or Sedated No (0 pts) Impaired Gait Yes (1 pt) Mobility Assist Device Used Yes (1 pt) Altered Elimination No (0 pt) Score/Fall Risk Level 0 - 2 = Low Risk Oriented to surroundings, Maintained a safe environment, Educated pt \T\ family on fall prevention, incl call for assistance when getting out of bed, Provided non-skid footwear. Abuse screen: Denies threats or abuse. Denies injuries from another. Nutritional screening: No deficits noted. Tuberculosis screening: No symptoms or risk factors identified. Assessment: 00:35 General: see triage assessment. jw7 01:26 Reassessment: Patient appears in no apparent distress at this time. No changes from jw7 previously documented assessment. Patient and/or family updated on plan of care and expected duration. Pain level reassessed. Patient is alert, oriented x 3, equal unlabored respirations, skin warm/dry/pink. 02:14 Reassessment: Patient appears in no apparent distress at this time. No changes from [facility] previously documented assessment. Patient and/or family updated on plan of care and expected duration. Pain level reassessed. Patient is alert, oriented x 3, equal unlabored respirations, skin warm/dry/pink. 03:33 Reassessment: Patient appears in no apparent distress at this time. Patient and/or jw7 family updated on plan of care and expected duration. Pain level reassessed. Patient is alert, oriented x 3, equal unlabored respirations, skin warm/dry/pink. Patient states feeling better. Patient states symptoms have improved. Vital Signs: 00:25 BP 131 / 76; Pulse 124; Resp 19 S; Temp 102.8(O); Pulse Ox 97% on R/A; Weight 79.38 kg lg3 (R); Height 5 ft. 0 in. (R); 01:24 BP 135 / 80; Pulse 123; Resp 26 S; Pulse Ox 95% on R/A; jw7 02:14 BP 146 / 48; Pulse 114; Resp 23 S; Pulse Ox 95% on R/A; jw7 03:33 BP 141 / 82; Pulse 100; Resp 20 S; Temp 100(O); Pulse Ox 100% on R/A; jw7 00:25 Body Mass Index 34.18 (79.38 kg, 152.4 cm) lg3 ED Course: 00:18 Patient arrived in ED. gm2 00:18 David Dumas MD is Attending Physician. sp4 00:27 Triage completed. lg3 00:27 Arm band placed on left wrist. lg3 00:36 Patient has correct armband on for positive identification. Bed in low position. Call [facility] light in reach. 01:03 Influenza Screen (a \T\ B) Sent. jw7 01:03 COVID-19 SARS RT PCR Sent. jw7 01:08 XRAY Chest (1 view) In Process Unspecified. EDMS 01:23 Oksana Beebe RN is Primary Nurse. jw7 01:23 Initial lab(s) drawn, by ED staff, sent to lab. COVID swab sent to lab. Flu and/or RSV jw7 swab sent to lab. Inserted saline lock: 22 gauge in left antecubital area, using aseptic technique. Blood collected. :49 EKG done, by ED staff, reviewed by David Dumas MD. jw7 :49 No provider procedures requiring assistance completed. jw7 03:35 Provided Education on: discharge instructions and medications. jw7 03:35 IV discontinued, intact, bleeding controlled, No redness/swelling at site. Pressure jw7 dressing applied. Administered Medications: 01:02 Drug: Acetaminophen PO 1000 mg PO once Route: PO; jw7 02:15 Follow up: Response: No adverse reaction; Marked relief of symptoms jw7 01:02 Drug: Ibuprofen PO 800 mg PO once Route: PO; jw7 02:15 Follow up: Response: No adverse reaction; Marked relief of symptoms jw7 :25 Drug: Ondansetron IVP 4 mg IVP once; over 2 minutes Route: IVP; Site: left antecubital; jw7 02:15 Follow up: Response: No adverse reaction; Marked relief of symptoms jw7 :25 Drug: NS 0.9% IV 1000 ml IV at 1 bolus Per protocol; 1000 mL bolus Route: IV; Rate: 1 jw7 bolus; Site: left antecubital; 03:36 Follow up: Response: No adverse reaction; IV Status: Completed infusion; IV Intake: jw7 1000ml :25 Drug: NS 0.9% IV 1000 ml IV at 250 ml/hr continuous Route: IV; Rate: 250 ml/hr; Site: [facility] left antecubital; 03:36 Follow up: Response: No adverse reaction; IV Status: Order to discontinue infusion; IV jw7 Intake: 500ml :25 Drug: metoCLOPramide IVP 10 mg IVP once; over 1 to 2 minutes Route: IVP; Site: left 7 antecubital; 02:15 Follow up: Response: No adverse reaction jw7 :58 Drug: Dextromethorphan-Guaifenesin PO Liquid 10 mg-100 mg/5 mL 10 ml PO once Route: PO; jw7 03:34 Follow up: Response: No adverse reaction jw7 :58 Drug: AZITHromycin PO 500 mg PO once Route: PO; jw7 03:34 Follow up: Response: No adverse reaction jw7 Medication: 01:49 VIS not applicable for this client. jw7 Intake: 03:36 IV: 1000ml; Total: 1000ml. jw7 03:36 IV: 500ml; Total: 1500ml. jw7 Outcome: 03:14 Discharge ordered by . edi 03:34 Discharged to home ambulatory, jw7 03:34 Condition: stable 03:34 Discharge instructions given to patient, Instructed on discharge instructions, follow up and referral plans. medication usage, Demonstrated understanding of instructions, follow-up care, medications, Prescriptions given X 4, 03:35 Patient left the ED. jw7 Signatures: Dispatcher [employer] EDMS Brenda Romero RN RN lg3 Oksana Beebe RN RN jw7 David Dumas MD MD sp4 Chelsy Mosqueda 2 Corrections: (The following items were deleted from the chart) 00:31 00:27 Home Meds: montelukast 10 mg Oral tab 1 tab once daily; lg3 lg3
[2023-02-24 07:17] VITALS: BP 141/82; TEMP 100; O2SAT 100
--- NOTE | 2023-02-26 09:52 | RAD REPORT ---
EXAM DESCRIPTION: XR Chest, 1 View CLINICAL HISTORY: The patient is 62 years old and is Female; CHEST PAIN TECHNIQUE: Frontal view of the chest. COMPARISON: No relevant prior studies available. FINDINGS: Lungs: Unremarkable. No consolidation. Pleural space: Unremarkable. No pneumothorax. Heart: Unremarkable. Mediastinum: Unremarkable. Normal mediastinal contour. Bones/joints: No acute findings. IMPRESSION: No acute findings in the chest. Electronically signed by: Neil Chris MD 02/24/2023 02:16 AM TEXTILE DYER Due to temporary technical issues with the PACS/Fluency reporting system, reports are being signed by the in house radiologists without review as a courtesy to insure prompt reporting. The interpreting radiologist is fully responsible for the content of the report.
--- NOTE | 2023-02-26 17:05 | EKG ---
Test Date: 2023-02-24 Test Time: 01:44:56 Manager Technical Services: EMILY MEASUREMENT RESULTS: Intervals: Rate: 127 SD: 164 QRSD: 70 QT: 294 QTc: 427 [place]: P: 61 SD: 164 QRS: 60 T: 59 INTERPRETIVE STATEMENTS: Sinus tachycardia Otherwise normal ECG Compared to ECG 11/28/2021 09:43:47 Sinus rhythm no longer present Electronically Signed On 02-26-23 16:59:21 HOOP PUNCHER by Maurizio Boyce
== END ==
LOC: ER 00:12
DX: R50.9 Fever, unspecified (principal); J02.9 Acute pharyngitis, unspecified; R11.0 Nausea; R52 Pain, unspecified; Z11.52 Encounter for screening for COVID-19; Z88.5 Allergy status to narcotic agent; Z28.310 Unvaccinated for COVID-19
CPT/HCPCS: 96361; 93005; 87040 ×2; 85025; 80048; 36415; 83735; 85610; 80076; 83605; 84484; 83880; 87635; 86140; 87804 ×2; 71045; 96375; 96374; 99284; J2765; J2405; J7030

== ENCOUNTER 2024-02-25 11:00 | Day surgery (SDC) | payer BC ==
[2024-02-22 11:54] LABS: Absolute Basophils 0.1 K/uL (0-0.5); Absolute Eosinophils 0.2 K/uL (0-0.5); Absolute Lymphocytes (CBC) 1.5 K/uL (0.7-4.9); Absolute Monocytes 0.4 K/uL (0.1-1.3); Absolute Neutrophil 4.1 K/uL (1.8-8.0); Basophils % 1.3 % (0-1.3); Hematocrit 44.8 % (36.0-45.0); Hemoglobin 14.9 g/dL (12.0-15.0); Lymphocytes % 23.9 % (15.3-44.8); MCH 31.7 pg (27.0-35.0); MCHC 33.3 g/dL (32.0-36.0); MCV 95.2 fL (80-100); MPV 6.8 fL (7.6-11.3); Neutrophils % 64.8 % (41.7-73.7); Platelets 455 thou/uL (152-406); RBC Red Blood Cell Count 4.71 M/uL (3.86-4.86); Red Cell Distribution Width 13.1 % (12.1-15.2)
--- NOTE | 2024-02-22 11:58 | RAD REPORT ---
EXAMINATION: TWO VIEW CHEST XR CLINICAL INDICATION: PRE OP TECHNIQUE: 2 views of the chest was performed. COMPARISON: 02/24/2023 FINDINGS: The lungs are well inflated and clear. The heart is normal in size. No displaced fractures evident. S mall hiatal hernia. IMPRESSION: No acute or significant abnormalities.
[2024-02-22 11:59] LABS: PTT, Activated Partial Thromb 27.9 SECONDS (24.3-36.9); Protime INR 0.98
[2024-02-22 12:04] LABS: Anion Gap 8.1 mEq/L (5.0-15.0); Potassium 4.1 mEq/L (3.5-5.1)
[2024-02-25] MEDS ORDERED: NA CHLORIDE 0.9% 500 ML ONE (11:03)
[2024-02-25] MEDS ORDERED: MIDAZOLAM HCL 2 MG/2 ML INJ ONE (11:33)
[2024-02-25] MEDS ORDERED: LIDOCAINE 1% 20 ML MDV ONE (11:33)
[2024-02-25] MEDS ORDERED: VERAPAMIL HCL 10 MG/4 ML VIAL IV ONE (11:33)
[2024-02-25] MEDS ORDERED: ATROPINE SULF 1 MG/10 ML SYR IV ONE (11:33)
[2024-02-25] MEDS ORDERED: HEPA 1000U/500MLS 2,000 UNIT/1,000 ML BAG IV ONE (11:33)
[2024-02-25] MEDS ORDERED: HEPARIN 10,000 UNIT/10 ML VIAL IV ONE (11:33)
[2024-02-25] MEDS ORDERED: ASPIRIN 325 MG TAB ONE (11:34)
[2024-02-25] MEDS ORDERED: CLOPIDOGREL 75 MG TABLET ONE (11:34)
[2024-02-25] MEDS ORDERED: TICAGRELOR 90 MG TABLET PO ONE (11:34)
[2024-02-25] MEDS ORDERED: FENTANYL CITR 100 MCG/2 ML ONE (11:34)
[2024-02-25] MEDS ORDERED: FLUMAZENIL 0.1 MG/ML (5 mL VIAL) IV ONE (11:41)
[2024-02-25] MEDS ORDERED: NALOXONE 0.4 MG/ML VIAL ONE (11:41)
[2024-02-25] MEDS ORDERED: HEPARIN 5000 UNIT/ML 1 ML VIAL ONE (11:41)
--- NOTE | 2024-02-25 22:38 | OP ---
Date of Procedure: 02/25/2024 Surgeon: LINDA NOVAK Procedures Performed: 1.Selective coronary angiogram. 2.Left heart catheterization. 3.Percutaneous coronary intervention of severe mid left circumflex disease, used 2.25 x 12 mm Synerg y drug-eluting stent. Indication: Unstable angina. Access: Right radial artery, 6-[place]ankan, closed with TR band. Complications: None. Bleeding: Less than 50 mL. Total Sedation Time: 45 minutes, used fentanyl and Versed. Description Of Procedure: After risks, benefits, and alternatives were explained, the patient agreed to procedure and signed informed consent. The patient was brought into cardiac catheterization [facility], prepped and draped in usual sterile fashion. Then, I accessed right radial artery using pedi atric micropuncture kit. Placed 6-[place]ankan slender sheath. Took 5-[place]ri [place]ankan [place] 4 catheter into the ao rtic root over J-wire across the aortic valve, measured LVEDP. Pullback did not record any gradient. Then engaged left main, took standard views and then the RCA, took standard views and removed the c atheter and exchanged for 6-[place]ankan EBU 3.5 guide and engaged left main, gave systemic heparin to assu re ACT level above 250 throughout the procedure, and gave 600 mg of Plavix and 325 mg aspirin. Then, took Runthrough wire into the left main and then to the left circumflex, crossing the area of stenos is and then using a 2.5 balloon, lesion was dilated without difficulties and then placed 2.25 x 12 mm Synergy drug-eluting stent to nominal pressure. Excellent expansion. 0% residual stenosis, then re moved the wire, and final angiogram was satisfactory. Removed the guide and the sheath, and placed T R band with good hemostasis. Findings: 1.Left main is normal. 2.LAD: Minimal luminal irregularities in the mid segment. Mid to distal, there is diffuse 20% dise ase. 3.Left circumflex: Proximal segment is normal. Mid segment, there is severe 70% to 80% stenosis, s tatus post successful PCI as above. OM1 branch has mid 20% stenosis. 4.RCA: Large and dominant, mid 30%, distal 40% stenosis, then luminal irregularities. 5.LVEDP, borderline elevated at 50 mmHg. Conclusion: Severe mid left circumflex stenosis, status post successful PCI as above with moderate d isease elsewhere and slightly elevated LVEDP. Recommendation: Aspirin, Plavix, high-dose statin. Follow up with me in the office in 1 week. SR/MODL Voice ID: [id number] Report ID: [id number]
[2024-02-26 16:44] VITALS: BP 122/73; O2SAT 96
--- NOTE | 2024-02-28 12:17 | EKG ---
Test Date: 2024-02-22 Test Time: 12:15:47 Sheet Metal Fabricator: DARBY MEASUREMENT RESULTS: Intervals: Rate: 69 NH: 182 QRSD: 78 QT: 406 QTc: 435 [place]: P: 68 NH: 182 QRS: 74 T: 73 INTERPRETIVE STATEMENTS: Normal sinus rhythm Normal ECG Compared to ECG 02/24/2023 01:44:56 Sinus tachycardia no longer present Electronically Signed On 02-28-24 12:13:56 PUT IN BEAT ADJUSTER by Tra Monge
== END 2024-02-25 17:00 | disposition home or self-care (01) ==
LOC: CCL 11:00
PROVIDERS: ATTEND Internal Medicine
DX: I25.110 Atherosclerotic heart disease of native coronary artery with unstable angina pectoris (principal); I34.0 Nonrheumatic mitral (valve) insufficiency; I10 Essential (primary) hypertension; E78.2 Mixed hyperlipidemia; E11.9 Type 2 diabetes mellitus without complications; Z79.4 Long term (current) use of insulin; Z79.899 Other long term (current) drug therapy; Z88.5 Allergy status to narcotic agent; Z87.891 Personal history of nicotine dependence; Z82.49 Family history of ischemic heart disease and other diseases of the circulatory system
CPT/HCPCS: 93005; 85025; 80048; 36415; 85610; 85347; 85730; 71046; 92928; 93458; 76937; C1893; Q9967; C1725; C1887; J1644; J2003; J2250; J3010; J7040; 99152; 99153; J0461; J2310